=== PATIENT | female | born 1960 | race Caucasian/White ===

== ENCOUNTER 2017-09-05 11:11 | Emergency (ER) | payer MEDICARE, MEDICAID ==
--- NOTE | 2017-09-05 12:10 | RAD ---
TWO VIEWS OF THE LEFT RIBS: History: Injury. Comparison: None. FINDINGS: No displaced fracture or malalignment. Mild degenerative change of the acromioclavicular joint. IMPRESSION: No displaced rib fracture. POS: [facility]
== END 2017-09-05 12:56 | disposition home or self-care (01) ==
LOC: ERS 11:11
DX: R07.81 Pleurodynia (principal); F41.9 Anxiety disorder, unspecified; F32.9 Major depressive disorder, single episode, unspecified; F43.10 Post-traumatic stress disorder, unspecified; W19.XXXA Unspecified fall, initial encounter
CPT/HCPCS: 94799

== ENCOUNTER 2017-10-01 14:10 | Emergency (ER) | payer MEDICARE, MEDICAID ==
[2017-10-01 14:46] LABS: #Basophils 0.1 thou/uL (0.0-0.2); #Eosinphils 0.1 thou/uL (0.0-0.7); #Monocytes 0.9 thou/uL (0.11-0.59); #Neutrophils 9.6 thou/uL (1.40-6.50); %Basophils 0.8 % (0.0-1.0); %Eosinophils 0.8 % (0.0-10.0); %Lymphocytes 15.7 % (21.0-51.0); %Monocytes 6.8 % (0.0-10.0); %Neutrophils 75.9 % (42.0-75.0); Hemoglobin 16.9 g/dL (12.0-16.0); Mean Corpuscular HGB CONC 34.2 g/dL (32.0-36.0); Mean Corpuscular Hemoglobin 33.4 pg (27.0-31.0); Mean Corpuscular Volume 97.6 fl (81.0-99.0); Mean Platelet Volume 7.3 fL (7.4-10.4); Platelet Count 318 thou/uL (130-400); RBC Distribution Width 12.2 % (11.5-14.5); Red Blood Cell (RBC) Count 5.07 mill/uL (4.20-5.40); White Blood Cell (WBC) Count 12.6 thou/uL (4.8-10.8)
--- NOTE | 2017-10-01 14:51 | CT ---
CT HEAD NONCONTRAST DATE: 10/01/17 HISTORY: Altered mental status. Left facial numbness. FINDINGS: No comparison. There is no evidence of acute intracranial hemorrhage or infarct. The ventricles appear normal in siz e, shape, and position. There is no mass effect or shift of midline structures. Visualized paranasal sinuses remain well aerated. IMPRESSION: No acute intracranial abnormalities are demonstrated on noncontrast CT head. POS: [facility]
[2017-10-01] MEDS ORDERED: Lorazepam 2 MG/ML VIAL ONE (14:53)
[2017-10-01 15:08] LABS: ALT (SGPT) 18 U/L (8-55); AST (SGOT) 25 U/L (5-34); Albumin 4.3 g/dL (3.5-5.0); Alkaline Phosphatase 87 U/L (40-150); Anion Gap 16 mmol/L (10-20); BUN (Urea Nitrogen) 11 mg/dL (9.8-20.1); Bilirubin, Total 0.6 mg/dL (0.2-1.2); Calc. Creatinine Clearance 0 mL/min (70-130); Calcium 9.6 mg/dL (7.8-10.44); Carbon Dioxide 20 mmol/L (22-29); Chloride 104 mmol/L (98-107); Estimated GFR-MDRD 77; Globulin 3.4 g/dL (2.4-3.5); Glucose 105 mg/dL (70-105); Potassium 4.2 mmol/L (3.5-5.1); Protein, Total 7.7 g/dL (6.0-8.3); Sodium 136 mmol/L (136-145)
[2017-10-01 15:12] LABS: CKMB 0.9 ng/mL (0-6.6); Troponin I 0.019 ng/mL (< 0.028)
[2017-10-01 15:22] LABS: Acetaminophen Less than 6.0 mcg/mL (10.0-30.0); Alcohol Less than 10 mg/dL (Less than 10); CK (CPK) 33 U/L (29-168); Salicylate Less than 8.0 mg/dL (15.0-30.0)
[2017-10-01 16:06] LABS: Bilirubin Moderate (Negative); Blood, Urine Negative (Negative); Clarity CLOUDY (Clear); Glucose, Urine (Dipstick) Negative (Negative); Leukocyte Small (Negative); Nitrite Negative (Negative); Protein, Urine (Dipstick) 30 mg/dL (Neg-Trace); Specific Gravity, Urine 1.028 (1.002-1.036)
[2017-10-01 16:10] LABS: Bacteria/HPF None Seen HPF (None Seen)
[2017-10-01 16:11] LABS: Pathc Cast-AUWi Flag 2.98 (0-2.49)
[2017-10-01 16:16] LABS: Amphetamine Not Detected (NotDetected); Barbiturates Screen Not Detected (NotDetected); Benzodiazepine Screen Not Detected (NotDetected); Cocaine Metabolite Screen Not Detected (NotDetected); Medtox Control Line Valid? VALID (VALID); Medtox Reader # READER 1; Methadone Not Detected (NotDetected); Methamphetamine Not Detected (NotDetected); Opiate Screen Not Detected (NotDetected); Oxycodone Screen Not Detected (NotDetected); Phencyclidine (PCP) Not Detected (NotDetected); THC/Cannabinoid Screen Detected (NotDetected); Tricyclic Screen Not Detected (NotDetected)
[2017-10-01 16:27] LABS: Hyaline Casts/LPF 7-10 HYALINE CAST LPF (0-3 Hyaline); Other Casts/LPF 0-3 COARSE GRAN LPF (0-3 Hyaline); RBC/HPF 0-3 HPF (0-3); Renal Epithelial 0-3 HPF (0-3); Transitional Epithelial 0-3 HPF (0-3)
--- NOTE | 2017-10-27 19:55 | EKG ---
Test Reason : FACIAL NUMBNESS Blood Pressure : / mmHG Vent. Rate : 092 BPM Atrial Rate : 092 BPM P-R Int : 130 ms QRS Dur : 076 ms QT Int : 362 ms P-R-T Axes : 067 052 051 degrees QTc Int : 447 ms Normal sinus rhythm Possible Left atrial enlargement Borderline ECG Confirmed by JOHN DUFFY ([id number]), international editorial producer BALAJI ALEJANDRO ([id number]) on 10/27/2017 7:54:46 PM Referred By: Confirmed By:JOHN DUFFY
== END 2017-10-02 00:16 ==
LOC: ERS 14:10
DX: R45.851 Suicidal ideations (principal); F41.9 Anxiety disorder, unspecified; F32.9 Major depressive disorder, single episode, unspecified; Z79.899 Other long term (current) drug therapy
CPT/HCPCS: 70450; 80053; 80306; 80307; 81003; 81015; 82553; 84443; 84484; 85025; 93005; 96374; J2060

== ENCOUNTER 2017-10-26 09:58 | Emergency (ER) | payer MEDICARE, MEDICAID ==
[2017-10-26 10:53] LABS: #Basophils 0.1 thou/uL (0.0-0.2); #Eosinphils 0.2 thou/uL (0.0-0.7); #Lymphocytes 2.5 thou/uL (1.20-3.40); #Neutrophils 10.1 thou/uL (1.40-6.50); %Basophils 0.4 % (0.0-1.0); %Eosinophils 1.4 % (0.0-10.0); %Monocytes 7.5 % (0.0-10.0); %Neutrophils 72.6 % (42.0-75.0); Hemoglobin 16.7 g/dL (12.0-16.0); Mean Corpuscular HGB CONC 33.5 g/dL (32.0-36.0); Mean Corpuscular Hemoglobin 32.2 pg (27.0-31.0); Mean Corpuscular Volume 96.1 fl (81.0-99.0); Mean Platelet Volume 6.9 fL (7.4-10.4); Platelet Count 300 thou/uL (130-400); Red Blood Cell (RBC) Count 5.19 mill/uL (4.20-5.40); White Blood Cell (WBC) Count 13.8 thou/uL (4.8-10.8)
[2017-10-26 11:05] LABS: Bilirubin Negative (Negative); Blood, Urine Negative (Negative); Clarity CLEAR (Clear); Glucose, Urine (Dipstick) Negative (Negative); Leukocyte Negative (Negative); Nitrite Negative (Negative); Protein, Urine (Dipstick) Negative (Neg-Trace); Specific Gravity, Urine 1.008 (1.002-1.036); Urobilinogen 0.2 mg/dL (0.2-1.0)
[2017-10-26 11:18] LABS: ALT (SGPT) 12 U/L (8-55); AST (SGOT) 16 U/L (5-34); Albumin 4.1 g/dL (3.5-5.0); Alkaline Phosphatase 90 U/L (40-150); Anion Gap 15 mmol/L (10-20); BUN (Urea Nitrogen) 9 mg/dL (9.8-20.1); Bilirubin, Total 0.7 mg/dL (0.2-1.2); Calc. Creatinine Clearance 0 mL/min (70-130); Calcium 9.6 mg/dL (7.8-10.44); Carbon Dioxide 21 mmol/L (22-29); Chloride 106 mmol/L (98-107); Estimated GFR-MDRD Greater than 90; Globulin 3.1 g/dL (2.4-3.5); Glucose 92 mg/dL (70-105); Potassium 4.5 mmol/L (3.5-5.1); Protein, Total 7.2 g/dL (6.0-8.3); Sodium 137 mmol/L (136-145)
[2017-10-26] MEDS ORDERED: Ondansetron HCl/PF 4 MG/2 ML Vial ONE (11:28)
[2017-10-26] MEDS ORDERED: Fentanyl 100 MCG/2 ML VIAL ONE (11:28)
--- NOTE | 2017-10-26 14:51 | CT ---
CT ABDOMEN AND PELVIS WITH CONTRAST: HISTORY: Abdominal pain. Left lower quadrant pain. COMPARISON: None. FINDINGS: Lung bases are clear. No pericardial effusion. There is abnormal inflammatory stranding around the sigmoid colon with extensive diverticula. No sandro dence of a microperforation. No free air within the peritoneum. The aortoiliac contour is normal. There are bilateral adrenal masses which are round and both well d efined. The liver is unremarkable. Prior cholecystectomy. No hydronephrosis. There is acetabular protrusio on the right hip. Moderate degenerative to the left hip. Moderate disk arthrosis of the lumbar spine. No acute compression fracture. IMPRESSION: 1. Uncomplicated sigmoid diverticulitis without microperforation or drainable fluid collection. 2. Bilateral round adrenal masses. These are indeterminate, although are most likely suggestive of bilateral adrenal adenomas given their homogeneous round appearance. A followup adrenal protocol CT washout is recommended. POS: [facility]
== END 2017-10-26 17:12 | disposition home or self-care (01) ==
LOC: ERS 09:58
DX: K57.32 Diverticulitis of large intestine without perforation or abscess without bleeding (principal); F41.9 Anxiety disorder, unspecified; F32.9 Major depressive disorder, single episode, unspecified; F43.10 Post-traumatic stress disorder, unspecified
CPT/HCPCS: 36415; 74177; 80053; 81003; 82274; 83690; 85025; 96361; 96374; 96375; J2405; J3010

== ENCOUNTER 2018-08-06 15:31 | Emergency (ER) | payer MEDICARE, MEDICAID ==
[2018-08-06] MEDS ORDERED: Acetaminophen 325 MG TAB ONE (16:16)
--- NOTE | 2018-08-06 17:07 | RAD ---
STANDARD AP PELVIS: HISTORY: Fall. Trauma. Pain. COMPARISON: None. FINDINGS: There is axial narrowing of the right hip joint and left hip joint, much worse on the right. There i s mild degenerative disease of both SI joints. Both obturator rings are without displaced fracture. No dislocation. IMPRESSION: 1. Axial narrowing of both hip joints, worse on the right, which can be seen with inflammatory arthr opathy. 2. No acute fracture. POS: [facility]
--- NOTE | 2018-08-06 17:10 | RAD ---
RIGHT HIP TWO VIEWS: HISTORY: Fall. Pain. COMPARISON: None. FINDINGS: There is axial narrowing of the right hip with acetabular over-coverage of the right femoral head. T here are ring osteophytes at the right femoral head/neck junction. There are some phleboliths in the pelvis. IMPRESSION: 1. Axial narrowing of the right hip with secondary degenerative disease, which can be seen with infl ammatory arthropathy. 2. No acute fracture. POS: [facility]
--- NOTE | 2018-08-06 17:12 | RAD ---
XR SACRUM AND SACRUM TWO VIEW: 08/06/18 HISTORY: Pain. COMPARISON: None. FINDINGS: The sacrum is intact. No acute displaced fracture. Coccyx is intact. IMPRESSION: No acute displaced fracture of the sacrum. POS: [facility]
--- NOTE | 2018-08-06 17:13 | RAD ---
LUMBAR SPINE THREE VIEWS: HISTORY: Fall. Pain. COMPARISON: None. FINDINGS: There is chronic appearing height loss at the T12 superior endplate, with a bridging anterior osteoph yte at T11-T12. Advanced narrowing of the L5-S1 disk space. There is narrowing of the intraspinous space between L3 and L5, with subcortical erosions and early s clerosis. No acute displaced fracture or malalignment. Mild vascular calcifications. Right upper quadrant tiffany gical clips. IMPRESSION: Chronic changes. No acute abnormality. POS: [facility]
== END 2018-08-06 16:55 | disposition home or self-care (01) ==
LOC: ERS 15:31
DX: S70.01XA Contusion of right hip, initial encounter (principal); F17.210 Nicotine dependence, cigarettes, uncomplicated; W18.30XA Fall on same level, unspecified, initial encounter
CPT/HCPCS: 72100; 72170; 72220; 99406

== ENCOUNTER 2018-08-29 10:04 | Emergency (ER) | payer MEDICARE, MEDICAID ==
[2018-08-29 10:36] LABS: #Basophils 0.1 thou/uL (0.0-0.2); #Eosinphils 0.1 thou/uL (0.0-0.7); #Lymphocytes 1.4 thou/uL (1.20-3.40); #Monocytes 0.5 thou/uL (0.11-0.59); #Neutrophils 4.5 thou/uL (1.40-6.50); %Basophils 1.1 % (0.0-1.0); %Eosinophils 2.2 % (0.0-10.0); %Monocytes 7.6 % (0.0-10.0); %Neutrophils 68.1 % (42.0-75.0); Hemoglobin 16.3 g/dL (12.0-16.0); Mean Corpuscular HGB CONC 34.9 g/dL (32.0-36.0); Mean Corpuscular Hemoglobin 32.6 pg (27.0-31.0); Mean Corpuscular Volume 93.2 fL (78.0-98.0); Mean Platelet Volume 7.2 fL (7.4-10.4); Platelet Count 335 thou/uL (130-400); RBC Distribution Width 11.4 % (11.5-14.5); White Blood Cell (WBC) Count 6.6 thou/uL (4.8-10.8)
--- NOTE | 2018-08-29 10:59 | RAD ---
SINGLE VIEW CHEST: Date: 08/29/18 COMPARISON: None. HISTORY: Syncope. FINDINGS: Single view of the chest shows a normal sized cardiomediastinal silhouette. There is no evidence of c onsolidation, mass, or pleural effusion. Degenerative changes are seen in the spine. IMPRESSION: No evidence of acute cardiopulmonary disease. POS: [facility]
[2018-08-29 11:00] LABS: ALT (SGPT) 17 U/L (8-55); AST (SGOT) 25 U/L (5-34); Albumin 4.1 g/dL (3.5-5.0); Alkaline Phosphatase 78 U/L (40-150); Anion Gap 14 mmol/L (10-20); BUN (Urea Nitrogen) 8 mg/dL (9.8-20.1); Bilirubin, Total 0.4 mg/dL (0.2-1.2); CK (CPK) 246 U/L (29-168); Calc. Creatinine Clearance 0 mL/min (70-130); Carbon Dioxide 23 mmol/L (22-29); Chloride 100 mmol/L (98-107); Estimated GFR-MDRD Greater than 90; Globulin 2.7 g/dL (2.4-3.5); Glucose 116 mg/dL (70-105); Potassium 4.4 mmol/L (3.5-5.1); Protein, Total 6.8 g/dL (6.0-8.3); Sodium 133 mmol/L (136-145)
--- NOTE | 2018-08-29 11:00 | RAD ---
LEFT HAND 3 VIEWS: Date: 08/29/18 HISTORY: Fall with injury to left hand. FINDINGS: Mild narrowing of the radiocarpal joint. Very mild DJD at the first carpometacarpal. Metacarpals and phalanges appear intact. No evidence of acute fracture. IMPRESSION: Mid degenerative changes at the carpals as described. No fracture or acute abnormality. MCP and IP gary ints unremarkable. POS: [facility]
[2018-08-29] MEDS ORDERED: Ketorolac Tromethamine 30 MG/ML VIAL ONE (11:31)
--- NOTE | 2018-08-29 11:33 | RAD ---
TWO VIEWS RIGHT HUMERUS: Comparison: None. History: Syncope while standing with right arm pain. FINDINGS: Two views of the right humerus shows no evidence of acute fracture or dislocation. No soft tissue swe lling is seen. No degenerative changes are present. IMPRESSION: No evidence of acute osseous abnormality. POS: [facility]
--- NOTE | 2018-08-29 11:34 | RAD ---
THREE VIEWS RIGHT SHOULDER: History: Syncope with fall and right shoulder pain. FINDINGS: Three views of the right shoulder shows no evidence of acute fracture or dislocation. Mild degenerati ve changes seen in the acromioclavicular joint. The visualized right thorax is unremarkable. IMPRESSION: Mild right shoulder degenerative change without acute osseous abnormality. POS: [facility]
--- NOTE | 2018-08-30 13:51 | EKG ---
Test Reason : Blood Pressure : / mmHG Vent. Rate : 078 BPM Atrial Rate : 078 BPM P-R Int : 156 ms QRS Dur : 072 ms QT Int : 376 ms P-R-T Axes : 061 064 071 degrees QTc Int : 428 ms Sinus rhythm with Premature supraventricular complexes Possible Anterior infarct , age undetermined Abnormal ECG Confirmed by FRANCISAC MC D.O. ([id number]), research editor BALAJI ALEJANDRO ([id number]) on 08/30/2018 1:51:19 PM Referred By: Confirmed By:FRANCISCA MC D.O.
== END 2018-08-29 13:57 | disposition home or self-care (01) ==
LOC: ERS 10:04
DX: S61.412A Laceration without foreign body of left hand, initial encounter (principal); S40.011A Contusion of right shoulder, initial encounter; R55 Syncope and collapse; M19.90 Unspecified osteoarthritis, unspecified site; F41.9 Anxiety disorder, unspecified; F31.9 Bipolar disorder, unspecified; F43.10 Post-traumatic stress disorder, unspecified; F17.210 Nicotine dependence, cigarettes, uncomplicated; Z79.899 Other long term (current) drug therapy; W01.0XXA Fall on same level from slipping, tripping and stumbling without subsequent striking against object, initial encounter
CPT/HCPCS: 36415; 71045; 80053; 82550; 84484; 85025; 93005; 96361; 96374; J1885

== ENCOUNTER 2018-09-14 12:08 | Observation (INO) | payer MEDICARE, MEDICAID ==
[2018-09-14] MEDS ORDERED: Lorazepam 2 MG/ML VIAL ONE (12:20)
[2018-09-14 13:32] LABS: #Basophils 0.1 thou/uL (0.0-0.2); #Lymphocytes 1.7 thou/uL (1.20-3.40); #Monocytes 0.8 thou/uL (0.11-0.59); #Neutrophils 8.8 thou/uL (1.40-6.50); %Basophils 0.5 % (0.0-1.0); %Eosinophils 0.4 % (0.0-10.0); %Lymphocytes 14.5 % (21.0-51.0); %Monocytes 6.9 % (0.0-10.0); %Neutrophils 77.6 % (42.0-75.0); Hemoglobin 14.7 g/dL (12.0-16.0); Mean Corpuscular HGB CONC 34.7 g/dL (32.0-36.0); Mean Corpuscular Hemoglobin 33.5 pg (27.0-31.0); Mean Corpuscular Volume 96.8 fL (78.0-98.0); Mean Platelet Volume 6.8 fL (7.4-10.4); Platelet Count 310 thou/uL (130-400); RBC Distribution Width 11.6 % (11.5-14.5); Red Blood Cell (RBC) Count 4.39 mill/uL (4.20-5.40); White Blood Cell (WBC) Count 11.3 thou/uL (4.8-10.8)
[2018-09-14 13:47] LABS: Acetaminophen Less than 6.0 mcg/mL (10.0-30.0); Alcohol Less than 10 mg/dL (Less than 10); Salicylate Less than 8.0 mg/dL (15.0-30.0)
[2018-09-14 13:50] LABS: ALT (SGPT) 12 U/L (8-55); AST (SGOT) 14 U/L (5-34); Alkaline Phosphatase 72 U/L (40-150); Anion Gap 13 mmol/L (10-20); BUN (Urea Nitrogen) 8 mg/dL (9.8-20.1); Bilirubin, Total 0.3 mg/dL (0.2-1.2); Calc. Creatinine Clearance 0 mL/min (70-130); Calcium 8.9 mg/dL (7.8-10.44); Carbon Dioxide 22 mmol/L (22-29); Chloride 98 mmol/L (98-107); Estimated GFR-MDRD 90; Globulin 2.6 g/dL (2.4-3.5); Glucose 98 mg/dL (70-105); Potassium 3.9 mmol/L (3.5-5.1); Protein, Total 6.6 g/dL (6.0-8.3); Sodium 129 mmol/L (136-145)
[2018-09-14] MEDS ORDERED: Ibuprofen 800 MG TAB ONE (14:11)
[2018-09-14] MEDS ORDERED: Nitroglycerin 0.4 MG TAB (25 Tab Bottle) PO PRN (14:56)
[2018-09-14] MEDS ORDERED: Senokot S 8.6-50 MG TAB PO PRN (14:56)
[2018-09-14 14:59] LABS: Bilirubin Small (Negative); Blood, Urine Negative (Negative); Clarity CLEAR (Clear); Glucose, Urine (Dipstick) Negative (Negative); Leukocyte Negative (Negative); Nitrite Negative (Negative); Protein, Urine (Dipstick) Negative (Neg-Trace); Specific Gravity, Urine 1.017 (1.002-1.036); pH, Urine 6.5 (5.0-9.0)
[2018-09-14] MEDS ORDERED: Aspirin Chewable 81 MG TAB ONE (15:13)
--- NOTE | 2018-09-14 15:31 | HP ---
PRIMARY CARE PROVIDER: None. CHIEF COMPLAINT: Dizziness. HISTORY OF PRESENT ILLNESS: Ms. Olivera is a pleasant 58-year-old lady, who was seen at [facility] on September 14, 2018. She presents with several complaints. She reports that the complaints have been going on for the last 2 or 3 days. She is a poor historian. Her son who is with her reminds her that she had these symptoms when she presented to the emergency room on August 29, 2018, more than 2 weeks ago. She reportedly has on and off dizziness, worse with standing. She is unable to recall if it is worse with any particular position of her head. She also reports mild left-sided tinnitus. She denies any deafness. She denies any nausea or vomiting. She also reports on and off retrosternal chest pain, but is unable to characterize it further. She denies any abdominal pain. REVIEW OF SYSTEMS: All other systems reviewed and found to be negative. PAST MEDICAL HISTORY: Osteoarthritis. PAST SURGICAL HISTORY: Cholecystectomy, hernia repair, and tubal ligation. PSYCHIATRIC HISTORY: Anxiety, depression, PTSD, and bipolar disorder. SOCIAL HISTORY: The patient smokes one and half packs of cigarettes a day. She drinks alcohol occasionally. She denies any recreational drug use. FAMILY HISTORY: No family history of coronary artery disease. ALLERGIES: NO KNOWN DRUG ALLERGIES. CURRENT MEDICATIONS: Paroxetine 10 mg daily, carbamazepine 200 mg two times a day, trazodone 100 mg daily, risperidone 0.25 mg 2 times a day, and buspirone 10 mg two times a day. PHYSICAL EXAMINATION: GENERAL: On examination, Ms. Olivera is awake and alert, not in acute distress. VITAL SIGNS: Blood pressure 154/77, pulse 69, respiratory rate 16, and oxygen saturation 97% on room air. She is afebrile. EYES: No scleral icterus. No conjunctival pallor. ENT: Moist mucosal membranes. No oropharyngeal erythema or exudates. External ear exam is unremarkable. NECK: Supple, nontender. Trachea is midline. RESPIRATORY: Accessory muscles of breathing are not active. Chest wall movements are symmetric bilaterally. Lungs are clear to auscultation without wheeze, rhonchi, or crepitations. CARDIOVASCULAR: S1 and S2 are heard, regular. Peripheral pulses palpable. No carotid bruit. No pericardial rub. ABDOMEN: Soft, nontender. Bowel sounds heard. No hepatomegaly, no splenomegaly. NEUROLOGIC: Cranial nerves 2 through 12 are intact. Power is 4/5 in the right upper extremity, 5/5 in the other three extremities. No other focal motor or sensory deficits. Deep tendon reflexes 2+, plantars downgoing bilaterally. MUSCULOSKELETAL: Power in the 4 extremities as described above. SKIN: No rashes or subcutaneous nodules. LYMPHATIC: No cervical lymphadenopathy. PSYCHIATRIC: Normal mood, normal affect. The patient is oriented to person, place, and time. LABORATORY STUDIES: Ms. Olivera's labs and investigations were reviewed. I reviewed her electrocardiogram, which shows normal sinus rhythm, no ST changes to suggest an acute coronary syndrome. I also reviewed her chest x-ray, which does not show any pulmonary infiltrates. She also had a noncontrast CT scan of the brain, report is pending. She has leukocytosis with 11,300 white cells, of which 77% are neutrophils. Hemoglobin and platelet count are normal. She has decreased sodium of 129, otherwise unremarkable comprehensive metabolic profile, normal TSH and normal troponin-I. Plasma alcohol level is less than 10. ASSESSMENT AND PLAN: Ms. Olivera is a pleasant 58-year-old lady, who was seen at [facility] on September 14, 2018. Her problem list includes: 1. Chest pain: Ms. Olivera is presenting with chest pain. Given her significant risk factors, we will follow troponins, monitor on telemetry and rule out acute coronary syndrome. We will order a stress test. 2. Dizziness: Etiology is unclear. We will start her on a trial of meclizine for a benign positional vertigo. We will also order MRI of the brain, carotid Dopplers and 2D echocardiogram as part of stroke workup, since she also has right upper extremity weakness. She reportedly fell on that extremity when she had a fall about 2-1/2 weeks ago. It is possible that the weakness is secondary to the pain in the upper extremity. 3. Tobacco abuse: The patient has been counseled regarding tobacco cessation. We will start her on nicotine replacement therapy. 4. Hyponatremia: We will provide normal saline and recheck sodium level. 5. Depression: Moderate, stable. We will resume home medications. Many thanks for allowing me to participate in your patient's care. Please feel free to contact me with any questions or concerns. LEVEL OF RISK: High. LEVEL OF COMPLEXITY: High. Job ID: [id number]
--- NOTE | 2018-09-14 15:40 | RAD ---
RADIOGRAPH CHEST 1 VIEW: 09/14/18 HISTORY: 58-year-old female with chest pain. FINDINGS: There are no air space densities, pulmonary edema, pneumothorax, or cardiomegaly. The lateral costop hrenic angles are sharp. IMPRESSION: No acute cardiopulmonary findings. michelle [] POS: [facility]
--- NOTE | 2018-09-14 15:51 | CT ---
CT BRAIN NONCONTRAST: DATE: 09/14/2018. TIME: 1:26 p.m. HISTORY: A 58-year-old female with altered mental status and nausea. FINDINGS: There is no midline shift or any other mass effect. There is no evidence of acute intracranial hemor rhage, large cortical infarct, obstructive hydrocephalus, or extraaxial fluid collection. The calvar ium is intact. There is a subcentimeter focal hypodensity in the left jung radiata. There is no i nterval change overall since 10/01/2017. IMPRESSION: 1. No acute intracranial findings. 2. Tiny old lacunar infarction in the left deep cerebral white matter. michelle Garza POS: [facility]
[2018-09-14 17:46] VITALS: BMI 25.3
[2018-09-14] MEDS: Nicotine 21 MG PATCH TD SCH (17:58)
[2018-09-14] MEDS: Sodium Chloride 0.9% 1,000 ML IV SCH (18:02)
[2018-09-14] MEDS: Acetaminophen 325 MG TAB PO PRN ×2 (18:20→23:58)
[2018-09-14 18:34] LABS: Troponin I 0.016 ng/mL (< 0.028)
[2018-09-14] MEDS: Atorvastatin Calcium 20 MG TAB PO SCH (21:36)
[2018-09-15] MEDS ORDERED: Ibuprofen 200 MG TAB PO SCH (00:15)
[2018-09-15 06:25] LABS: #Basophils 0.1 thou/uL (0.0-0.2); #Eosinphils 0.2 thou/uL (0.0-0.7); #Lymphocytes 1.9 thou/uL (1.20-3.40); #Monocytes 1.1 thou/uL (0.11-0.59); %Basophils 0.6 % (0.0-1.0); %Eosinophils 2.2 % (0.0-10.0); %Lymphocytes 18.7 % (21.0-51.0); %Monocytes 10.2 % (0.0-10.0); %Neutrophils 68.3 % (42.0-75.0); Hemoglobin 13.6 g/dL (12.0-16.0); Mean Corpuscular HGB CONC 34.4 g/dL (32.0-36.0); Mean Corpuscular Hemoglobin 33.6 pg (27.0-31.0); Mean Corpuscular Volume 97.6 fL (78.0-98.0); Platelet Count 269 thou/uL (130-400); RBC Distribution Width 11.7 % (11.5-14.5); Red Blood Cell (RBC) Count 4.05 mill/uL (4.20-5.40); White Blood Cell (WBC) Count 10.2 thou/uL (4.8-10.8)
[2018-09-15 06:44] LABS: Anion Gap 14 mmol/L (10-20); BUN (Urea Nitrogen) 9 mg/dL (9.8-20.1); Calc. Creatinine Clearance 103 mL/min (70-130); Calcium 8.5 mg/dL (7.8-10.44); Carbon Dioxide 23 mmol/L (22-29); Cardiac Risk 2.6 (Less than 4.5); Chloride 105 mmol/L (98-107); Cholesterol 137 mg/dl (< 200 Desired); Estimated GFR-MDRD Greater than 90; Glucose 99 mg/dL (70-105); HDL Cholesterol 53 mg/dL (>60 Neg Risk); LDL Cholesterol, Calculated 75 mg/dL; Potassium 4.1 mmol/L (3.5-5.1); Sodium 138 mmol/L (136-145); Triglycerides 44 mg/dL (Less than 150)
[2018-09-15] MEDS: Sodium Chloride 0.9% 1,000 ML IV SCH (06:52)
--- NOTE | 2018-09-15 08:08 | ULT ---
BILATERAL CAROTID DUPLEX ULTRASOUND: HISTORY: Stroke. TECHNIQUE: Mejia scale ultrasound with color flow and spectral Doppler imaging of the extracranial carotid artery systems was performed bilaterally. FINDINGS: There is plaque formation on either side. The peak systolic velocity in the right ICA measures 72 cm/s with an end-diastolic velocity of 19 cm/ s and a systolic ratio of 0.72. The peak systolic velocity in the left ICA measures 100 cm/s with an end-diastolic velocity of 29 cm/ s and a systolic ratio of 0.99. Flow in both vertebral arteries remains antegrade. IMPRESSION: No evidence of hemodynamically significant stenosis. POS: [facility]
[2018-09-15] MEDS: Enoxaparin Sodium 40 MG/0.4 ML SYRINGE SC SCH (09:09)
[2018-09-15] MEDS: Aspirin 325 mg Enteric Coated Tablet PO SCH (09:09)
[2018-09-15] MEDS ORDERED: ADENOSINE 60 MG/20 ML VIAL ONE (09:27)
[2018-09-15] MEDS ORDERED: ALPRAZolam 0.25 MG TAB PO SCH ×2 (10:30→13:00)
[2018-09-15] MEDS: Ibuprofen 200 MG TAB PO PRN ×2 (10:59→20:28)
--- NOTE | 2018-09-15 11:07 | CON ---
DATE OF CONSULTATION: 09/15/2018 TYPE OF CONSULTATION: Neurology. CONSULTING PHYSICIAN: Hospitalist Service. IMPRESSION: Syncope, possible cardiac origin. PLAN: Cardiac workup. HISTORY OF PRESENT ILLNESS: Ms. Olivera is a 58-year-old white female with a past history of tobacco use and arthritis. She was apparently sitting in her house when she started to develop substernal chest pressure. She had some associated nausea and shortness of breath. She apparently lost consciousness for a brief interval of time. The family reports that she went limp and collapsed onto her side. There was no associated seizure activity. She was out for approximately a minute. When she awoke, she still had some ongoing chest pressure and nausea. EMS was called and she was given an aspirin. She was brought into the hospital for evaluation. She is not having any symptoms today. She denies any past history of similar symptoms. She does not report any lateralized weakness or numbness. She had a carotid ultrasound, which was clear. CT scan of the brain without contrast was normal. Her lab work thus far has been negative. PAST MEDICAL HISTORY: As listed above. ALLERGIES: NONE REPORTED. SOCIAL HISTORY: Positive for tobacco. FAMILY HISTORY: Noncontributory. MEDICATIONS: Medication list was reviewed. . REVIEW OF SYSTEMS: Ten-system review of systems is otherwise negative. PHYSICAL EXAMINATION: GENERAL: She is a well-nourished, middle-aged woman, in no acute distress. VITAL SIGNS: Pulse 58 and respirations 16. She is afebrile. HEENT: Pupils are equal and reactive. Conjunctivae clear. Oropharynx clear. NECK: Supple. No lymphadenopathy. EXTREMITIES: No cyanosis, clubbing, or edema. NEUROLOGIC: She is alert and appropriate. Her speech is fluent and clear. Exam is nonfocal. LABORATORY DATA: EKG showed normal sinus rhythm. SUMMARY: This is a middle-aged woman with syncopal episode associated with chest pain and shortness of breath. I do not see any acute neurologic issues in play at this point. Job ID: [id number]
[2018-09-15] MEDS: Nicotine 21 MG PATCH TD SCH (14:13)
--- NOTE | 2018-09-15 14:24 | NM ---
CARDIAC SPECT: HISTORY: A 58-year-old female with chest pain. TECHNIQUE: A myocardial perfusion scan is performed using the single-isotope 1-day protocol with Technetium 99m sestamibi. 10 mCi were injected intravenously for the rest exam and 32 mCi for the stress study. Pha rmacologic stress with adenosine is monitored and interpreted by Dr. Aviles. FINDINGS: Homogeneous tracer distribution is seen in the myocardial segments on stress and rest images without fixed or reversible defects. GATED SPECT LVEF: 74%. WALL MOTION EXAM: Normal. IMPRESSION: Normal myocardial perfusion scan. POS: [facility]
--- NOTE | 2018-09-15 14:27 | MRI ---
MRI BRAIN NONCONTRAST: HISTORY: A 58-year-old female with acute stroke/TIA symptoms: temporary visual loss, near syncope, nausea, hea dache, and generalized weakness. FINDINGS: The ventricles are normal in size and configuration. There is no restricted diffusion, midline shift or any other mass effect, recent intraaxial hemorrhage, or extraaxial fluid collection. There are a few scattered punctate T2-hyperintensities in the cerebral white matter consistent with mild chronic ischemic white matter changes due to mild microvascular atherosclerosis. The adenoids are enlarged to dimensions of approximately 2.5 x 1.8 x 3 cm. The clivus is intact. IMPRESSION: 1. Mild chronic ischemic white matter changes. 2. Otherwise normal brain. 3. Enlargement of adenoids. jn[] POS: [facility]
--- NOTE | 2018-09-15 16:34 | PDOC.PN ---
- Subjective Encounter Start Date: 09/15/18 Encounter Start Time: 16:00 Pt seen for followup re: chest pain. Feels tired, chest pain is better. - Objective MAR Reviewed: Yes Vital Signs & Weight: Vital Signs (12 hours) Temp Pulse Pulse Pulse Resp BP BP 09/15/18 15:20 97.9 F 61 18 09/15/18 15:10 61 64 132/72 146/71 H 09/15/18 07:23 98.0 F 55 L 20 BP Pulse Ox 09/15/18 15:20 146/71 H 96 09/15/18 15:10 09/15/18 07:23 170/77 H 95 Weight Weight 152 lb 4.8 oz I&O: 09/14/18 09/15/18 09/16/18 06:59 06:59 06:59 Intake Total 1552 Output Total 1100 Balance 452 Result Diagrams: 09/15/18 06:04 09/15/18 06:04 EKG Reviewed by me: Yes (Tele; NSR) Phys Exam - Physical Examination Constitutional: NAD HEENT: moist MMs Neck: supple Respiratory: clear to auscultation bilateral Cardiovascular: RRR Gastrointestinal: soft Neurological: moves all 4 limbs Psychiatric: normal affect Dx/Plan (1) Chest pain Code(s): R07.9 - CHEST PAIN, UNSPECIFIED Status: Acute Comment: Improved, stress test negative. Check d-dimer. (2) Dizziness Code(s): R42 - DIZZINESS AND GIDDINESS Status: Acute Comment: Improved (3) Tobacco abuse Code(s): Z72.0 - TOBACCO USE Status: Chronic Comment: continue nicotine patch - Plan plan discussed w/ family, PT/OT * . Review of Systems - Review of Systems Constitutional: weakness Respiratory: negative: Cough, Shortness of Breath, SOB with Excertion, Pleuritic Pain, Wheezing Cardiovascular: negative: chest pain, palpitations, orthopnea, paroxysmal nocturnal dyspnea, edema, light headedness - Medications/Allergies Allergies/Adverse Reactions: Allergies Allergy/AdvReac Type Severity Reaction Status Date / Time No Known Drug Allergies Allergy Verified 09/14/18 14:55 Medications: Current Medications Acetaminophen (Tylenol) 650 mg PO Q4H PRN PRN Reason: Headache/Fever/Mild Pain (1-3) Last Admin: 09/14/18 23:58 Dose: 650 mg Aspirin (Ecotrin) 325 mg PO DAILY [facility] Last Admin: 09/15/18 09:09 Dose: Not Given Atorvastatin Calcium (Lipitor) 20 mg PO HS [facility] Last Admin: 09/14/18 21:36 Dose: 20 mg Enoxaparin Sodium (Lovenox) 40 mg SC 0900 [facility] Last Admin: 09/15/18 09:09 Dose: Not Given Sodium Chloride (Normal Saline 0.9%) 1,000 mls @ 75 mls/hr IV .[id number] [facility] Last Admin: 09/15/18 06:52 Dose: 1,000 mls Ibuprofen (Motrin) 400 mg PO Q8H PRN PRN Reason: Mild Pain (1-3) Last Admin: 09/15/18 10:59 Dose: 400 mg Nicotine (Nicoderm Patch) 21 mg TD Q24HR [facility] Last Admin: 09/15/18 14:13 Dose: Not Given Nitroglycerin (Nitrostat) 0.4 mg PO Q5MIN PRN PRN Reason: Chest Pain Senna/Docusate Sodium (Senokot S) 2 tab PO BID PRN PRN Reason: Constipation Sodium Chloride (Flush - Normal Saline) 10 ml IVF PRN PRN PRN Reason: Saline Flush
--- NOTE | 2018-09-15 19:59 | PDOC.EVN ---
Event Note - Event Note Event Note: Called by RN for pt's home meds- not written for any of them and is on multiple medications for psychiatric dx. Will restart home meds. Mariaelena also notes that D Dimer is slightly elevated - will defer to day team to see what further workup is indicated. Pt reported as hemodynamically normal, normal oxygen levels on room air and without complaints. No indication for imaging at this time.
[2018-09-15] MEDS: Atorvastatin Calcium 20 MG TAB PO SCH (20:26)
[2018-09-15] MEDS: risperiDONE 0.25 MG TAB PO SCH (20:26)
[2018-09-15] MEDS: busPIRone HCl 10 MG TAB PO SCH (20:26)
[2018-09-15] MEDS ORDERED: traZODone HCl 50 MG TAB PO SCH (21:00)
[2018-09-15] MEDS ORDERED: carBAMazepine 100 mg Chewable Tablet PO SCH (21:00)
[2018-09-16] MEDS: Sodium Chloride 0.9% 1,000 ML IV SCH (03:03)
[2018-09-16] MEDS: risperiDONE 0.25 MG TAB PO SCH (08:17)
[2018-09-16] MEDS: Ibuprofen 200 MG TAB PO PRN (08:17)
[2018-09-16] MEDS: busPIRone HCl 10 MG TAB PO SCH (08:17)
[2018-09-16] MEDS: Enoxaparin Sodium 40 MG/0.4 ML SYRINGE SC SCH (08:18)
[2018-09-16] MEDS: Aspirin 325 mg Enteric Coated Tablet PO SCH (08:18)
[2018-09-16] MEDS ORDERED: PARoxetine 20 MG TAB PO SCH (09:00)
[2018-09-16] MEDS ORDERED: carBAMazepine 200 MG TAB PO SCH (09:00)
[2018-09-16 11:55] VITALS: BP 130/74; TEMP 98.4
[2018-09-16] MEDS ORDERED: Iopamidol 370 76% 100 ML VIAL ONE (12:47)
--- NOTE | 2018-09-16 13:59 | CT ---
CTA OF THE THORAX UTILIZING IV CONTRAST AND 3D REFORMATTED IMAGES AND PE PROTOCOL: COMPARISON: Prior CTA of the abdomen and pelvis dated 10/11/2014. FINDINGS: There is ground-glass opacity seen within the left lower lobe. There is mild scattered paraseptal em physema. No central or segmental pulmonary embolus is grossly evident. There are a few mildly promi nent lymph nodes seen within the mediastinum and one is seen within the right paratracheal region heladio suring 1.2 cm. An additional one is seen is seen within the subcarinal region measuring 1.2 cm. The re is scattered coronary artery and thoracic aorta calcifications. Visualized upper abdomen demonstrates stable bilateral adrenal adenomas. No acute osseous abnormalit y is evident. IMPRESSION: 1. No central or segmental pulmonary embolus demonstrated. 2. Ground-glass opacity in the left lower lobe may reflect an alveolitis of infectious or inflammato ry etiology. 3. Mild emphysema. 4. Nonspecific mildly prominent mediastinal lymph nodes. 5. Stable bilateral adrenal adenomas. POS: [facility]
[2018-09-16] MEDS: Nicotine 21 MG PATCH TD SCH (16:11)
--- NOTE | 2018-09-17 05:44 | DIS ---
DATE OF ADMISSION: 09/14/2018 DATE OF DISCHARGE: 09/16/2018 PRIMARY CARE PROVIDER: None. DISCHARGE DIAGNOSES: 1. Chest pain. 2. Most likely musculoskeletal etiology for chest pain. 3. Dizziness. 4. Hyponatremia. 5. Tobacco abuse. 6. Moderate depression. 7. Pneumonia, suspected. CONDITION OF PATIENT ON THE DAY OF DISCHARGE: Stable. I assessed Ms. Olivera on the day of discharge. She reports chest pain is better. Vital signs are stable. S1 and S2 are heard, regular. Lungs are clear to auscultation bilaterally. DISCHARGE MEDICATIONS: 1. BuSpar 10 mg two times a day. 2. Tegretol 300 mg at bedtime and 200 mg in the morning. 3. Paxil 10 mg daily. 4. Risperidone 0.25 mg 2 times a day. 5. Trazodone 100 mg at bedtime. 6. NicoDerm CQ 21 mg patch daily. 7. Omnicef 300 mg 2 times a day. HOSPITAL COURSE: Ms. Olivera is a pleasant 58-year-old lady, who was admitted to [facility] on September 14, 2018, for chest pain and dizziness. Please refer to my history and physical note dated on September 14, 2018, for further details. She was seen by Neurology Service, Dr. Brush. MRI of the brain showed enlarged adenoids, mild chronic ischemic white matter changes, and otherwise normal brain. She had nuclear stress test, which did not show any evidence of reversible ischemia. Left ventricular ejection fraction was 74%. 2D echocardiogram showed left ventricular ejection fraction of 50% to 55%, grade 1/3 diastolic dysfunction, moderately dilated left atrium, thickened mitral valve leaflets, [id number] mitral regurgitation, mild tricuspid regurgitation, elevated right ventricular systolic pressure estimated at 43 mmHg and small pericardial effusion without tamponade. She had a mildly elevated D-dimer. CT angiogram of the chest did not show any central or segmental pulmonary embolus. She had ground-glass opacity in the left lower lobe, which may reflect an cellulitis of infectious or inflammatory etiology. She has mild emphysema, nonspecific mildly prominent mediastinal lymph nodes and stable bilateral adrenal adenomas. She is being discharged home in a stable condition. She is advised to follow up with her primary care provider in 3 to 5 days. At the time of admission, she had hyponatremia with sodium of 129, it resolved by the following day. Fasting lipid profile done during this hospitalization showed triglycerides 44, cholesterol 137, LDL cholesterol 75, and HDL cholesterol 53. TSH was normal. Many thanks for allowing me to participate in your patient's care. Please feel free to contact me with any questions or concerns. DISCHARGE DESTINATION: Home. Job ID: [id number]
== END 2018-09-16 16:25 | disposition home or self-care (01) ==
LOC: ERS 12:08 → ERHOLD 14:20 → 2SW 15:25
PROVIDERS: ADMIT Internal Medicine; ATTEND Internal Medicine
DX: R07.89 Other chest pain (principal); R42 Dizziness and giddiness; E87.1 Hypo-osmolality and hyponatremia; F17.210 Nicotine dependence, cigarettes, uncomplicated; F31.9 Bipolar disorder, unspecified; J35.2 Hypertrophy of adenoids; I31.3 Pericardial effusion (noninflammatory); I08.1 Rheumatic disorders of both mitral and tricuspid valves; J43.9 Emphysema, unspecified; J45.909 Unspecified asthma, uncomplicated; F41.9 Anxiety disorder, unspecified; F43.10 Post-traumatic stress disorder, unspecified; Z79.899 Other long term (current) drug therapy
CPT/HCPCS: 70450; 70551; 71045; 71275; 78452; 80048; 80061; 80307; 81003; 84484 ×2; 85025; 85379; 93005; 93017; 93306; 93880; 94760; 96361 ×4; 96372; 96374; 97116; 97139 ×4; 99285; A9500; G0378 ×2; 36415; 80053; 84443; J0153; J1650; J2060; Q9967

== ENCOUNTER 2018-12-05 10:33 | Emergency (ER) | payer MEDICARE, MEDICAID ==
[2018-12-05] MEDS ORDERED: Iopamidol 370 76% 50 ML VIAL FS ONE (10:34)
[2018-12-05] MEDS ORDERED: ISOVUE-370 76%-LOCM 1 ML ONE (10:34)
[2018-12-05] MEDS ORDERED: Ondansetron PF 4 MG/2 ML Vial ONE (11:24)
[2018-12-05] MEDS ORDERED: Morphine 4 MG/ML VIAL ONE (11:24)
[2018-12-05 11:28] LABS: #Eosinphils 0.2 thou/uL (0.0-0.7); #Lymphocytes 2.8 thou/uL (1.20-3.40); #Monocytes 0.9 thou/uL (0.11-0.59); #Neutrophils 6.2 thou/uL (1.40-6.50); %Basophils 0.5 % (0.0-1.0); %Eosinophils 1.9 % (0.0-10.0); %Lymphocytes 27.5 % (21.0-51.0); %Monocytes 8.7 % (0.0-10.0); %Neutrophils 61.4 % (42.0-75.0); Mean Corpuscular HGB CONC 34.2 g/dL (32.0-36.0); Mean Corpuscular Volume 96.4 fL (78.0-98.0); Mean Platelet Volume 7.2 fL (7.4-10.4); Platelet Count 357 thou/uL (130-400); RBC Distribution Width 11.8 % (11.5-14.5); Red Blood Cell (RBC) Count 4.55 mill/uL (4.20-5.40)
[2018-12-05 11:32] LABS: Bilirubin Negative (Negative); Blood, Urine Trace (Negative); Clarity CLOUDY (Clear); Glucose, Urine (Dipstick) Negative (Negative); Leukocyte Negative (Negative); Nitrite Negative (Negative); Protein, Urine (Dipstick) Negative (Neg-Trace); Specific Gravity, Urine 1.015 (1.002-1.036); Urobilinogen 0.2 mg/dL (0.2-1.0)
[2018-12-05 11:35] LABS: Hyaline Casts/LPF 0-3 HYALINE CAST LPF (0-3 Hyaline); Pathc Cast-AUWi Flag 0.54 (0-2.49); WBC/HPF 0-3 HPF (0-3); Yeast-AUWi Flag 27.6 (0-25.0)
[2018-12-05 11:47] LABS: ALT (SGPT) 17 U/L (8-55); AST (SGOT) 14 U/L (5-34); Albumin 4.2 g/dL (3.5-5.0); Alkaline Phosphatase 93 U/L (40-150); Anion Gap 14 mmol/L (10-20); BUN (Urea Nitrogen) 12 mg/dL (9.8-20.1); Bilirubin, Total 0.4 mg/dL (0.2-1.2); Calc. Creatinine Clearance 0 mL/min (70-130); Calcium 9.4 mg/dL (7.8-10.44); Carbon Dioxide 22 mmol/L (22-29); Chloride 103 mmol/L (98-107); Estimated GFR-MDRD Greater than 90; Globulin 3.4 g/dL (2.4-3.5); Glucose 97 mg/dL (70-105); Lipase 20 U/L (8-78); Potassium 4.1 mmol/L (3.5-5.1); Protein, Total 7.6 g/dL (6.0-8.3); Sodium 135 mmol/L (136-145)
[2018-12-05 11:50] LABS: Bacteria/HPF Rare-Few HPF (None Seen); Yeast-All Forms None Seen HPF (None Seen)
--- NOTE | 2018-12-05 13:26 | CT ---
CT Abdomen Pelvis W Con HISTORY:Left lower quadrant pain and history of diverticulitis. COMPARISON: 10/26/2017 study. FINDINGS: The lung bases are clear. The liver is borderline in size. The spleen is within normal limi ts. Pancreas is unremarkable. The gallbladder has been removed. Bilateral adrenal masses are again identified. They are stable in size and have the appearance most s uggestive of adenomas. There is no significant periaortic or mesenteric lymphadenopathy. CT of pelvis performed with intravenous contrast enhancement: Sigmoid diverticulosis again identified . I do not appreciate any definite acute changes that would suggest diverticulitis. The appendix is normal. No free fluid. IMPRESSION: 1. Stable appearance to bilateral adrenal masses most likely adenomas. 2. Postcholecystectomy change. 3. Sigmoid diverticulosis without definite inflammatory change.
== END 2018-12-05 14:38 | disposition home or self-care (01) ==
LOC: ERS 10:33
DX: K59.00 Constipation, unspecified (principal); F41.9 Anxiety disorder, unspecified; F31.9 Bipolar disorder, unspecified; F43.10 Post-traumatic stress disorder, unspecified; F17.290 Nicotine dependence, other tobacco product, uncomplicated; Z79.899 Other long term (current) drug therapy
CPT/HCPCS: 74177; 80053; 81003; 81015; 82274; 83690; 85025; 96361; 96374; 96375; J2270; J2405; Q9966; Q9967

== ENCOUNTER 2018-12-10 12:55 | Emergency (ER) | payer MEDICARE, MEDICAID ==
--- NOTE | 2018-12-10 13:46 | RAD ---
Exam:4 views left knee HISTORY: Fall. Pain. COMPARISON: None FINDINGS: Severe tricompartmental degenerative change with exuberant heterotopic bone formation. Mild bony mineralization. Small suprapatellar effusion. No fracture. IMPRESSION: No fracture. Chronic severe degenerative changes as described
[2018-12-10] MEDS ORDERED: HYDROcodone/Acetaminophen 5/325 mg Tablet ONE (15:01)
== END 2018-12-10 15:42 | disposition home or self-care (01) ==
LOC: ERS 12:55
DX: M25.562 Pain in left knee (principal); M19.90 Unspecified osteoarthritis, unspecified site; F31.9 Bipolar disorder, unspecified; F41.9 Anxiety disorder, unspecified; F43.10 Post-traumatic stress disorder, unspecified; F17.210 Nicotine dependence, cigarettes, uncomplicated; W01.0XXA Fall on same level from slipping, tripping and stumbling without subsequent striking against object, initial encounter

== ENCOUNTER 2018-12-27 07:46 | Emergency (ER) | payer MEDICARE, MEDICAID ==
[2018-12-27 08:34] LABS: #Eosinphils 0.1 thou/uL (0.0-0.7); #Lymphocytes 1.8 thou/uL (1.20-3.40); #Monocytes 1.1 thou/uL (0.11-0.59); #Neutrophils 10.2 thou/uL (1.40-6.50); %Basophils 0.3 % (0.0-1.0); %Eosinophils 1.1 % (0.0-10.0); %Lymphocytes 13.5 % (21.0-51.0); %Monocytes 8.4 % (0.0-10.0); %Neutrophils 76.7 % (42.0-75.0); Hemoglobin 13.8 g/dL (12.0-16.0); Mean Corpuscular HGB CONC 34.1 g/dL (32.0-36.0); Mean Corpuscular Hemoglobin 32.6 pg (27.0-31.0); Mean Corpuscular Volume 95.4 fL (78.0-98.0); Mean Platelet Volume 7.1 fL (7.4-10.4); Platelet Count 326 thou/uL (130-400); RBC Distribution Width 11.3 % (11.5-14.5); Red Blood Cell (RBC) Count 4.23 mill/uL (4.20-5.40); White Blood Cell (WBC) Count 13.3 thou/uL (4.8-10.8)
[2018-12-27 08:57] LABS: ALT (SGPT) 7 U/L (8-55); AST (SGOT) 7 U/L (5-34); Albumin 3.8 g/dL (3.5-5.0); Alkaline Phosphatase 80 U/L (40-150); Anion Gap 15 mmol/L (10-20); BUN (Urea Nitrogen) 8 mg/dL (9.8-20.1); Bilirubin, Total 0.6 mg/dL (0.2-1.2); Calc. Creatinine Clearance 0 mL/min (70-130); Calcium 9.2 mg/dL (7.8-10.44); Carbon Dioxide 22 mmol/L (22-29); Chloride 100 mmol/L (98-107); Estimated GFR-MDRD Greater than 90; Globulin 3.2 g/dL (2.4-3.5); Glucose 117 mg/dL (70-105); Lipase 14 U/L (8-78); Potassium 3.6 mmol/L (3.5-5.1); Sodium 133 mmol/L (136-145)
[2018-12-27 09:08] LABS: Bilirubin Small (Negative); Blood, Urine Moderate (Negative); Clarity CLOUDY (Clear); Glucose, Urine (Dipstick) Negative (Negative); Leukocyte Trace (Negative); Nitrite Negative (Negative); Protein, Urine (Dipstick) 30 mg/dL (Neg-Trace); Specific Gravity, Urine 1.028 (1.002-1.036)
[2018-12-27 09:10] LABS: Bacteria/HPF None Seen HPF (None Seen); Pathc Cast-AUWi Flag 1.76 (0-2.49); RBC/HPF 21-50 HPF (0-3); WBC/HPF 0-3 HPF (0-3)
[2018-12-27] MEDS ORDERED: Morphine 4 MG/ML VIAL ONE (09:15)
[2018-12-27] MEDS ORDERED: Ondansetron PF 4 MG/2 ML Vial ONE (09:16)
[2018-12-27 09:33] LABS: Hyaline Casts/LPF 0-3 HYALINE CAST LPF (0-3 Hyaline); Renal Epithelial None Seen HPF (0-3); Transitional Epithelial NONE SEEN HPF (0-3)
--- NOTE | 2018-12-27 10:18 | CT ---
CT Abdomen Pelvis W Con History: [Right lower quadrant pain] Comparison: CT abdomen pelvis December 05, 2018 Findings: Lung bases are clear. Small volume pericardial fluid. Prior cholecystectomy. Bilateral adrenal adenomas. Mild reservoir effect of the extrahepatic biliary system. Spleen is unremarkable as well as the pancr eas. No hydronephrosis. No abnormal renal enhancing mass. Marked thickening of the mid sigmoid colon with inflammation centered in a diverticulum. No abscess f ormation. No evidence for contained perforation. Wall thickening of the bladder is likely reactive. No dilated loops of small bowel. Aortic contour is nonaneurysmal. No retroperitoneal adenopathy. No acute osseous abnormality. Impression: Uncomplicated acute sigmoid diverticulitis. Follow-up after colonoscopy treatment is marli mmended.
[2018-12-27] MEDS ORDERED: ISOVUE-370 76%-LOCM 1 ML ONE (11:51)
== END 2018-12-27 11:04 | disposition home or self-care (01) ==
LOC: ERS 07:46
DX: K57.32 Diverticulitis of large intestine without perforation or abscess without bleeding (principal); F41.9 Anxiety disorder, unspecified; F31.9 Bipolar disorder, unspecified; F17.210 Nicotine dependence, cigarettes, uncomplicated; F43.10 Post-traumatic stress disorder, unspecified; M19.90 Unspecified osteoarthritis, unspecified site; Z79.1 Long term (current) use of non-steroidal anti-inflammatories (NSAID); Z79.899 Other long term (current) drug therapy
CPT/HCPCS: 36415; 74177; 80053; 81003; 81015; 82274; 83605; 83690; 85025; 96374; 96375; J2270; J2405; Q9966

== ENCOUNTER 2019-01-07 13:11 | Emergency (ER) | payer MEDICARE, MEDICAID ==
[2019-01-07] MEDS ORDERED: Lidocaine 1% w/Epinephrine 1:100K 20 ML VIAL ONE (15:23)
[2019-01-07] MEDS ORDERED: Morphine 4 MG/ML VIAL ONE (15:50)
[2019-01-07] MEDS ORDERED: Dexamethasone 10 MG/ML VIAL ONE (16:00)
== END 2019-01-07 16:30 | disposition home or self-care (01) ==
LOC: ERS 13:11
DX: M10.9 Gout, unspecified (principal); M19.90 Unspecified osteoarthritis, unspecified site; F41.9 Anxiety disorder, unspecified; F31.9 Bipolar disorder, unspecified; F43.10 Post-traumatic stress disorder, unspecified; F17.210 Nicotine dependence, cigarettes, uncomplicated; Z79.899 Other long term (current) drug therapy; Z79.1 Long term (current) use of non-steroidal anti-inflammatories (NSAID)
CPT/HCPCS: 20610; 96372; J1100; J2001; J2270

== ENCOUNTER 2019-03-07 11:25 | Emergency (ER) | payer MEDICARE, MEDICAID ==
[2019-03-07] MEDS ORDERED: HYDROcodone/Acetaminophen 5/325 mg Tablet ONE (11:47)
--- NOTE | 2019-03-07 12:03 | RAD ---
EXAM: XR Knee Rt 4 View STANDARD PROVIDED CLINICAL HISTORY: Pain COMPARISON: None FINDINGS: No evidence for fracture or other acute osseous abnormality. Advanced tricompartmental degenerative a rthrosis with conspicuous joint space loss bulky periarticular osteophyte formation. No evidence for significant knee joint capsular distention. IMPRESSION: Severe degenerative change.
== END 2019-03-07 13:05 | disposition home or self-care (01) ==
LOC: ERS 11:25
DX: S83.91XA Sprain of unspecified site of right knee, initial encounter (principal); M19.90 Unspecified osteoarthritis, unspecified site; F31.9 Bipolar disorder, unspecified; F41.9 Anxiety disorder, unspecified; F43.10 Post-traumatic stress disorder, unspecified; F17.210 Nicotine dependence, cigarettes, uncomplicated; W18.30XA Fall on same level, unspecified, initial encounter

== ENCOUNTER 2019-09-02 14:32 | Observation (INO) | payer MEDICARE, MEDICAID ==
[2019-09-02 15:07] LABS: #Basophils 0.1 thou/uL (0.0-0.2); #Eosinphils 0.1 thou/uL (0.0-0.7); #Lymphocytes 2.6 thou/uL (1.20-3.40); #Monocytes 0.8 thou/uL (0.11-0.59); #Neutrophils 6.6 thou/uL (1.40-6.50); %Basophils 0.8 % (0.0-1.0); %Eosinophils 1.3 % (0.0-10.0); %Lymphocytes 25.2 % (21.0-51.0); %Monocytes 8.2 % (0.0-10.0); %Neutrophils 64.5 % (42.0-75.0); Hemoglobin 16.3 g/dL (12.0-16.0); Mean Corpuscular HGB CONC 34.7 g/dL (32.0-36.0); Mean Corpuscular Volume 95.2 fL (78.0-98.0); Mean Platelet Volume 7.7 fL (7.4-10.4); Platelet Count 345 thou/uL (130-400); RBC Distribution Width 12.8 % (11.5-14.5); Red Blood Cell (RBC) Count 4.92 mill/uL (4.20-5.40); White Blood Cell (WBC) Count 10.2 thou/uL (4.8-10.8)
[2019-09-02] MEDS ORDERED: methylPREDNISolone Sod Succ/PF 125 MG/2 ML VIAL ONE (15:09)
[2019-09-02] MEDS ORDERED: Albuterol Sulfate 2.5 mg/0.5 ml Neb ONE (15:22)
[2019-09-02] MEDS ORDERED: Albuterol Sulfate 2.5 mg/3 ml Neb ONE (15:23)
[2019-09-02 15:41] LABS: ALT (SGPT) 12 U/L (8-55); AST (SGOT) 27 U/L (5-34); Alkaline Phosphatase 85 U/L (40-110); Anion Gap 15 mmol/L (10-20); BUN (Urea Nitrogen) 18 mg/dL (9.8-20.1); Bilirubin, Total 0.4 mg/dL (0.2-1.2); Calc. Creatinine Clearance 0 mL/min (70-130); Calcium 9.2 mg/dL (7.8-10.44); Carbon Dioxide 21 mmol/L (22-29); Chloride 105 mmol/L (98-107); Estimated GFR-MDRD 79; Globulin 3.7 g/dL (2.4-3.5); Glucose 99 mg/dL (70-105); Protein, Total 7.7 g/dL (6.0-8.3); Sodium 136 mmol/L (136-145)
[2019-09-02 16:15] LABS: CKMB 0.6 ng/mL (0-6.6)
--- NOTE | 2019-09-02 16:18 | RAD ---
EXAM: Chest PA and lateral: HISTORY: Dyspnea COMPARISON: 09/14/2018 FINDINGS: Heart: Normal cardiac silhouette Aorta: Unremarkable Pulmonary vessels: Normal Costophrenic angles: Costophrenic angles are clear. Lungs: Hyperinflation with chronic changes. No mass or consolidation. Pneumothorax: No pneumothorax Osseous structures: No osseous abnormalities IMPRESSION: No acute cardiopulmonary process.
--- NOTE | 2019-09-02 17:07 | PDOC.FPRHP ---
- History of Present Illness Chief Complaint: chest pressure and SOB History of Present Illness: 59yo CF with a recent diagnosis of COPD who presented to the ED for CP and SOB. Patient reports central chest pressure/ache with radiation down her left arm but comes and goes. Rated 8/10. Relieved with motrin. Has been ongoing for a couple of days. Was just in the hospital in [place] for similar complaints, including same chest pain, and was diagnosed with COPD at that time. Also states had cardiac workup in [place] which she thinks was negative but unsure details. Also endorses a productive cough of clear sputum but did note a single blood clot in sputum earlier today. Says currently cannot walk more than ~10 feet without getting winded but her baseline is not much more. Endorses PND for about 1 month. No fever/chills, N/V, or LE edema. ED Course: Given Duoneb and solumedrol. Indeterminate trop. Admitted to tele obs. - Allergies/Adverse Reactions Allergies Allergy/AdvReac Type Severity Reaction Status Date / Time No Known Drug Allergies Allergy Verified 09/02/19 19:35 - Home Medications Comments: Pt was seen last in clinic 3 months ago. States she is currently not taking any medications daily. - History PMHx: COPD, anxiety, depression, diverticulosis PSHx: niall, tubal ligation, hernia repair FHx: Brother- prostate CA Father- COPD Sister- Colon CA Mom- CAD requiring stents Social: Current smoker, 1ppd since age 14. Has ~3 beers/week. Has smoked marijuana recently for arthritis pain. Lives with family - Review of Systems General: reports: fatigue. denies: fever/chills, night sweats Eyes: denies: eye pain, vision changes ENT: denies: nasal congestion, rhinorrhea Respiratory: reports: cough, shortness of breath. denies: congestion Cardiovascular: reports: chest pain, paroxysmal nocturnal dyspnea. denies: palpitation, edema, orthopnea Gastrointestinal: reports: constipation (chronic). denies: nausea, vomiting, diarrhea, abdominal pain Genitourinary: denies: dysuria, polyuria Skin: denies: rashes Musculoskeletal: reports: arthritis/arthralgias. denies: swelling Neurological: denies: weakness Psychological: reports: anxiety, depression - Vital signs BP: 138/66 HR: 88 RR: 18 Tmax: Pox: 94% on RA Wt: 102 kg - Physical Exam Constitutional: NAD, awake, alert and oriented, well developed HEENT: normocephalic and atraumatic, conjunctiva clear, grossly normal vision ( with glasses), grossly normal hearing, MMM, oropharynx clear Neck: supple, FROM, no LAD Chest: other (tender to palpation, CP reproducible on exam) Heart: RRR, normal S1/S2, no murmurs/rubs/gallops, pulses present (2+ dorsalis pedis and radial) Lungs: no respiratory distress, no rales/rhonchi, other (Decreased breath sounds throughout, mild end-exp wheeze. Mild supraclavicular retractions) Abdomen: soft, non-tender, bowel sounds present, no masses/distention Musculoskeletal: normal structure Neurological: no focal deficit Skin: no rash/lesions, good turgor Heme/Lymphatic: no unusual bruising or bleeding Psychiatric: good judgment and insight, other (Anxious) FMR H&P: Results - Labs Result Diagrams: 09/02/19 14:46 09/02/19 14:46 Lab results: WBC 10.2 thou/uL (4.8-10.8) 09/02/19 14:46 Hgb 16.3 g/dL (12.0-16.0) H 09/02/19 14:46 Hct 46.9 % (36.0-47.0) 09/02/19 14:46 MCV 95.2 fL (78.0-98.0) 09/02/19 14:46 Plt Count 345 thou/uL (130-400) 09/02/19 14:46 Neutrophils % 64.5 % (42.0-75.0) 09/02/19 14:46 Sodium 136 mmol/L (136-145) 09/02/19 14:46 Potassium 5.0 mmol/L (3.5-5.1) 09/02/19 14:46 Chloride 105 mmol/L (98-107) 09/02/19 14:46 Carbon Dioxide 21 mmol/L (22-29) L 09/02/19 14:46 BUN 18 mg/dL (9.8-20.1) 09/02/19 14:46 Creatinine 0.75 mg/dL (0.6-1.1) 09/02/19 14:46 Glucose 99 mg/dL (70-105) 09/02/19 14:46 Calcium 9.2 mg/dL (7.8-10.44) 09/02/19 14:46 Total Bilirubin 0.4 mg/dL (0.2-1.2) 09/02/19 14:46 AST 27 U/L (5-34) 09/02/19 14:46 ALT 12 U/L (8-55) 09/02/19 14:46 Alkaline Phosphatase 85 U/L (40-110) 09/02/19 14:46 CK-MB (CK-2) 0.6 ng/mL (0-6.6) 09/02/19 15:01 B-Natriuretic Peptide 149.2 pg/mL (0-100) H 09/02/19 15:04 Serum Total Protein 7.7 g/dL (6.0-8.3) 09/02/19 14:46 Albumin 4.0 g/dL (3.5-5.0) 09/02/19 14:46 - EKG Interpretation EKG: Normal axis. NSR. No ST or T wave changes. QTc 453. - Radiology Interpretation Chest x-ray Status: image reviewed by me (mild hyperinflation of lungs, no focal consolidation), report reviewed by me (no acute cardiopulm process) FMR H&P: A/P - Problem List (1) COPD exacerbation Current Visit: Yes Status: Acute Code(s): J44.1 - CHRONIC OBSTRUCTIVE PULMONARY DISEASE W (ACUTE) EXACERBATION (2) Anxiety Current Visit: Yes Status: Chronic Code(s): F41.9 - ANXIETY DISORDER, UNSPECIFIED (3) Chest pain Current Visit: Yes Status: Acute Code(s): R07.9 - CHEST PAIN, UNSPECIFIED Qualifiers: Chest pain type: intercostal pain Qualified Code(s): R07.82 - Intercostal pain Comment: Improved, stress test negative. Check d-dimer. (4) Tobacco abuse Current Visit: Yes Status: Chronic Code(s): Z72.0 - TOBACCO USE Comment: continue nicotine patch - Plan 59yo CF with h/o COPD, anxiety, tob abuse presents with atypical CP and COPD exacerbation. #COPD exacerbation - Tachypnea of 29 at presentation, otherwise satting well and afebrile, RR improved with neb tx - WBC 10.2, procal <0.02, flu neg - CXR - no acute CPP - Recent hospitalization [facility] for COPD exacerbation, had cardiac w/u, will obtain records - Duonebs q6h with q4h prn - S/p Solumedrol 125mg in ED, will cont Prednisone 40mg daily x5d - Azithro 500mg x3d - Will monitor resp status #Atypical chest pain, likely costochondritis from chronic cough - reproducible on exam - Similar to previous COPD admit pain per pt - Indeterminate trop at 0.047, will trend - Admit to Tele obs for monitoring - Heart score 2 - Pt states recent cardiac workup at [place], will obtain records - Tylenol prn #Anxiety - chronic, no home meds - Vistaril TID prn #Tob abuse - nicotine patch, encourage cessation PCP: JUAN Flaherty IVF: SL Diet: Regular DVT: Lovenox Dispo: Admit to tele obs for acute COPD exacerbation and indeterminate trop. Will trend trops, cont respiratory therapy and monitoring. Anticipate hospitalization < 48 hours. FMR H&P: Upper Level - Pertinent history 59YOF with a reported h/o anxiety, arthritis, tobacco abuse, & COPD who presented to the ED with a CC of CP and SOB. Regarding her chest pain, patient reports having left-sided chest pressure/aching with radiation down her left arm that comes and goes regardless of what activity she is doing that has been ongoing for the last few days. Rated is as an 8/10 in severity. Reports some relief with motrin. Reports she was just in the hospital in [place] after presenting there with similar complaints, including same chest pain, and was diagnosed with COPD at that time. Also states had cardiac workup in [place] which she thinks was negative. Regarding her SOB, patient endorses increased SOB both at rest & on exertion. Says she currently cannot walk more than ~10 feet without getting winded but her baseline is not much more. Reports an associated productive cough of clear sputum but did note a single blood clot in sputum earlier today. Endorses PND for about 1 month. Denies any associated fever/chills, N/V, nasal congestion/drainage, headache, or LE edema. - Pertinent findings Trop 0.047 BNP 149.2 Hgb 16.3 WBC 10 EKG NSR CXR: NAF REVIEW OF SYSTEMS: Gen: no fever, chills, or sweats Neuro: no headache or weakenss Eyes: no visual changes ENT: no ear pain, no sore throat, no runny nose Resp: +cough & SOB, no wheeze Card: + chest pain & PND; No edema GI: no N/V/D, no abdominal pain, + constipation : no dysuria, no hematuria MSK: no myalgias, + joint pain/stiffness Heme: no easy bruising/bleeding, no blood thinners (but takes ~1g ibuprofen QD) Skin: no rash, no erythema Vitals: BP: 138/66 HR: 88 RR: 18 Tmax: 98.6F Pox: 94% on RA Wt: 102 kg PHYSICAL EXAMINATION: General: NAD, alert and oriented x3 HEENT: PERRLA, EOMI, normal sclera, oropharynx without erythema or exudate Neck: Supple. Full ROM. Chest: Exquisitely TTP in left chest Heart/Cardiovascular System: RRR, Cap refill < 3 seconds, no rub, no murmur Lungs/Respiratory System: Trace end expiratory wheezing heard throughout with distant breath sounds; Mild increased work of breathing. Room air. Abdomen/Gastro-Intestinal System: no abdominal tenderness, normal bowel sounds Extremities: Warm extremities. No cyanosis or edema. Neuro: No gross deficits appreciated. CN 2-12 grossly intact Psychiatry: Awake, Alert and cooperative with exam but very anxious appearing and tearful at end of interview Skin: No lesions, rashes, or ulcers but multiple scattered bruises noted on UEs Musculoskeletal: Full ROM - Plan Date/Time: 09/02/19 1703 ISabrina, have evaluated this patient and agree with findings/plan as outlined by internal communications writer resident. Pertinent changes/additions are listed here. 59YOF with a reported h/o of COPD, anxiety, and tob abuse who presents with atypical CP and a suspected COPD exacerbation. #Acute on chronic COPD exacerbation - Tachypneic with a RR of 29 on presentation to the ED but was maintaining adequate sats on RA & had slight improvement with INH Duoneb. - WBC 10.2, procal <0.02, flu neg - CXR - no acute findings - Will continue CHELO Duonebs Q6H & continue steroids but transition to PO prednisone to start tomorrow AM & continue for 4 days for 5 day course total. - Will also start on Azithromycin & continue for 5 day course. - Will monitor resp status closely overnight #Atypical chest pain - Most likely costochondritis from chronic cough as pain was reproducible on exam w/ significant TTP on exam of left chest. In addition, patient reports being hospitalized at [facility] recently for similar complaints had a cardiac w/u which she believes was negative, will request records. - Initial trop indeterminate at 0.047 & EKG NSR. Will continue to trend trops & monitor on telemetry overnight. - Tylenol prn for pain #Anxiety - chronic, not taking any meds at home but reports she is supposed to be - Hydroxyzine Q6H prn for anxiety and/or insomnia while inpatient - Needs f/u with PCP upon d/c for restarting QD maintenance therapy #Tobacco abuse - Nicotine patch while inpatient - Will encourage cessation #Elevated BNP - BNP mildly elevated at 149.2 & no baseline for comparison. - patient reports PND x1 month but no crackles or edema noted on exam. Likely had an ECHO in [place] so will request these records to assess for CHF. #Polycythemia - Hgb elevated at 16.3. Likely 2/2 heavy smoking history. Will encourage cessation. PCP: JUAN Flaherty IVFs: LUTHER Diet: Regular DVT PPX: Lovenox GI PPX: None CODE STATUS: FULL CODE Dispo: Will admit to tele obs for acute COPD exacerbation and chest pain with indeterminate trop. Anticipated LOS < 48 hours pending clinical course.
[2019-09-02 18:38] LABS: Troponin I Less than 0.010 ng/mL (< 0.028)
[2019-09-02 18:41] VITALS: BMI 24.6
[2019-09-02] MEDS ORDERED: hydrOXYzine Pamoate 25 mg Capsule PO PRN (19:27)
[2019-09-02] MEDS ORDERED: Senokot S 8.6-50 MG TAB PO PRN (19:27)
[2019-09-02] MEDS ORDERED: Melatonin 3 MG TAB PO PRN (19:27)
[2019-09-02] MEDS ORDERED: Calcium Carbonate 500 MG ChewTAB PO PRN (19:27)
[2019-09-02] MEDS ORDERED: Enoxaparin Sodium 40 MG/0.4 ML SYRINGE SC SCH (19:30)
[2019-09-02] MEDS ORDERED: Nicotine 21 MG PATCH TD SCH (20:00)
[2019-09-02 20:56] LABS: Hemoglobin A1c 4.7 % (4.0-6.0)
[2019-09-02 21:17] LABS: Troponin I 0.052 ng/mL (< 0.028)
[2019-09-02] MEDS: Acetaminophen 325 MG TAB PO PRN (22:07)
[2019-09-03 00:07] LABS: Troponin I 0.031 ng/mL (< 0.028)
[2019-09-03 05:16] LABS: Cardiac Risk 2.2 (Less than 4.5)
--- NOTE | 2019-09-03 05:59 | PDOC.FM ---
- Subjective Subjective: Pt notes improved breathing with nebulizers overnight. She denies experiencing any fevers or chills. Notes a continuation in her cough without sputum production. Is tearful on exam for possible discharge today stating that she cannot return home in her current state. I addressed her concerns and assured her she would not be discharged prematurely and we would work today to get her outpt medications arranged so she is ready for discharge when the time comes. - Objective Vital Signs & Weight: Vital Signs (12 hours) Temp Pulse Resp BP BP Pulse Ox 09/03/19 04:30 53 L 18 107/55 L 96 09/03/19 02:19 51 L 14 09/03/19 00:28 51 L 16 09/02/19 23:00 97.6 F 62 14 101/61 98 09/02/19 18:20 96.4 F L 70 20 114/54 L 96 Weight Admit Weight 67.132 kg Weight 67.132 kg Result Diagrams: 09/02/19 14:46 09/02/19 14:46 Phys Exam - Physical Examination Constitutional: NAD HEENT: moist MMs, sclera anicteric Neck: supple, full ROM + expiratory wheezing and rhonci, good air movement in all chiu Cardiovascular: RRR, no significant murmur Gastrointestinal: soft, non-tender Musculoskeletal: no edema, pulses present Neurological: non-focal, moves all 4 limbs Psychiatric: normal affect, A&O x 3 Skin: no rash, cap refill <2 seconds Dx/Plan (1) COPD exacerbation Code(s): J44.1 - CHRONIC OBSTRUCTIVE PULMONARY DISEASE W (ACUTE) EXACERBATION Status: Acute (2) Chest pain Code(s): R07.9 - CHEST PAIN, UNSPECIFIED Status: Acute Qualifiers: Chest pain type: intercostal pain Qualified Code(s): R07.82 - Intercostal pain (3) Anxiety Code(s): F41.9 - ANXIETY DISORDER, UNSPECIFIED Status: Chronic (4) Tobacco abuse Code(s): Z72.0 - TOBACCO USE Status: Chronic - Plan Plan: 59yo CF with h/o COPD, anxiety, tob abuse presents with atypical CP and COPD exacerbation. COPD exacerbation - Oxygen saturations appropriate overnight on RA - Duo-nebs overnight improved breathing, will transition to prn nebs - Will cont Prednisone 40mg daily x5d - Continue Azithro x3d - Will need to establish home inhaler regimen prior to discharge Atypical chest pain, likely costochondritis from chronic cough - Trops intermittently low indeterminate range, likely demand ischemia related to COPD exacerbation - Chest pain only present when coughing and on palpation - Heart score 2 - Pt states recent cardiac workup at [place], awaiting records - Tylenol prn Anxiety - chronic, no home meds - Vistaril TID prn Tob abuse - nicotine patch, encourage cessation PCP: JUAN Flaherty IVF: SL Diet: Regular DVT: Lovenox Dispo: Admit to tele obs for acute COPD exacerbation and indeterminate trop. Respiratory status improving. Anticipate hospitalization < 48 hours. Addendum - Attending - Attending Attestation Date/Time: 09/03/19 1219 I personally evaluated the patient and discussed the management with Dr. Vaughan I agree with the History, Examination, Assessment and Plan documented above with any addition or exceptions noted below.Stable for d/c if maintains oxygen saturation on RA and able to obtain outpatient RX.
[2019-09-03] MEDS ORDERED: predniSONE 20 MG TAB PO SCH (08:00)
[2019-09-03] MEDS ORDERED: Azithromycin 250 MG TAB PO SCH (09:00)
[2019-09-03] MEDS ORDERED: Enoxaparin Sodium 40 MG/0.4 ML SYRINGE SC SCH (09:00)
[2019-09-03] MEDS: Acetaminophen 325 MG TAB PO PRN (09:16)
[2019-09-03 11:54] VITALS: BP 131/60; TEMP 98.2
--- NOTE | 2019-09-04 02:06 | DIS ---
DATE OF ADMISSION: 09/02/2019 DATE OF DISCHARGE: 09/03/2019 ADMITTING ATTENDING: Kareem Duque MD DISCHARGE ATTENDING: Kareem Duque MD RESIDENT: Darci Vaughan DO. CONSULTS: None. PROCEDURES: None. IMAGING: Chest x-ray, findings, no acute cardiopulmonary process. PRIMARY DIAGNOSES: Chronic obstructive pulmonary disease exacerbation, costochondritis. SECONDARY DIAGNOSES: Anxiety, atypical chest pain, tobacco abuse. DISCHARGE MEDICATIONS: 1. Proventil HFA 2 puffs q.4 hours p.r.n. 2. Azithromycin 500 mg p.o. daily for one day. 3. DuoNeb 3 mL q.4 hours p.r.n. 4. Prednisone 40 mg p.o. daily x4 days. 5. Spiriva Respimat two inhalations daily. HISTORY OF PRESENT ILLNESS AND HOSPITAL COURSE: The patient is a 59-year-old female with recent diagnosis of COPD, who presents to the ED for complaints of chest pain and shortness of breath. The patient states she was recently hospitalized in [place] for similar complaints and was diagnosed with COPD at that time and had a cardio workup that was performed that was negative. The patient was subsequently discharged with home inhalers, however, could not afford it and did not pick these up. She endorses a productive cough of clear sputum and notes a single blood clot in her sputum the day prior. In the ED, the patient received DuoNeb and Solu-Medrol and was found to have an indeterminate troponin and was subsequently admitted to [facility]. Throughout her stay, the patient received intermittent DuoNebs overnight and noted improvement in her shortness of breath. The patient remained on room air with appropriate oxygen saturations greater than 92% throughout her stay. On the second day of her admission, the patient's DuoNebs were changed to p.r.n. and were no longer utilized by the patient due to appropriate pulmonary status. The patient was continued on azithromycin and prednisone for her COPD exacerbation to continue on an outpatient basis. Records from [place] admission were obtained, which did not show a stress test; however, the patient was adamant that this was performed and was negative. The patient's prescriptions were sent to the pharmacy and pharmacy was contacted to assess what the patient's [id number] cost would be; however, they stated that the patient would need to come in and bring her insurance card before they can assess what the patient would need to pay. The patient was instructed on this and stated that she would need to follow up with her primary care physician relatively soon if she is not able to obtain her medications and also to address her [place] admission. The patient expressed understanding of all this and agreed to follow up with her PCP, Dr. Flaherty within the next several days. At the time of admission, the patient was continuing the saturation in the upper 90s on room air, denying any significant shortness of breath. Troponins had downtrended throughout her admission. TSH was found to be within normal range. Cholesterol panel was within normal limits. DISCHARGE INSTRUCTIONS: 1. Location: Home. 2. Diet: Heart healthy. 3. Activity: As tolerated by cardiopulmonary limits. 4. Follow up with PCP, Dr. Flaherty within the next 3-7 days. Job ID: [id number]
--- NOTE | 2019-09-06 14:25 | EKG ---
Test Reason : Blood Pressure : / mmHG Vent. Rate : 075 BPM Atrial Rate : 075 BPM P-R Int : 146 ms QRS Dur : 074 ms QT Int : 406 ms P-R-T Axes : 029 044 043 degrees QTc Int : 453 ms Normal sinus rhythm Septal infarct , age undetermined Abnormal ECG Confirmed by LIZZETH AMBROSE DO ([id number]), dictionary editor KATARINA RICARDO ([id number]) on 09/06/2019 2:25:12 PM Referred By: Confirmed By:LIZZETH AMBROSE DO
== END 2019-09-03 15:48 | disposition home or self-care (01) ==
LOC: ERS 14:32 → 2SW 18:26
PROVIDERS: ADMIT Family Medicine; ATTEND Family Medicine
DX: J44.1 Chronic obstructive pulmonary disease with (acute) exacerbation (principal); M94.0 Chondrocostal junction syndrome [Tietze]; F41.9 Anxiety disorder, unspecified; F32.9 Major depressive disorder, single episode, unspecified; F17.210 Nicotine dependence, cigarettes, uncomplicated; D75.1 Secondary polycythemia
CPT/HCPCS: 71046; 80061; 82553; 83036; 83880; 84145; 84484 ×2; 87804 ×2; 90732; 93005; 94640 ×3; 94644; 96372 ×2; 96374; 97139 ×2; 97535; 99285; G0009; G0378 ×3; 36415; 80053; 84443; 85025; 90471; J1650; J2930; J7512; J7611; J7620; Q0177

== ENCOUNTER 2021-09-27 10:05 | Emergency (ER) | payer MEDICAID, MEDICARE ==
[2021-09-27 11:12] LABS: #Eosinphils 0.2 thou/uL (0.0-0.7); #Lymphocytes 2.3 thou/uL (1.20-3.40); #Monocytes 0.5 thou/uL (0.11-0.59); #Neutrophils 5.5 thou/uL (1.40-6.50); %Basophils 0.3 % (0.0-1.0); %Eosinophils 2.5 % (0.0-10.0); %Lymphocytes 27.1 % (21.0-51.0); %Monocytes 5.3 % (0.0-10.0); %Neutrophils 64.8 % (42.0-75.0); Hemoglobin 14.7 g/dL (12.0-16.0); Mean Corpuscular HGB CONC 32.6 g/dL (32.0-36.0); Mean Corpuscular Hemoglobin 31.7 pg (27.0-31.0); Mean Corpuscular Volume 97.2 fL (78.0-98.0); Mean Platelet Volume 7.9 fL (7.4-10.4); Platelet Count 284 thou/uL (130-400); RBC Distribution Width 13.1 % (11.5-14.5); Red Blood Cell (RBC) Count 4.64 mill/uL (4.20-5.40); White Blood Cell (WBC) Count 8.5 thou/uL (4.8-10.8)
[2021-09-27] MEDS ORDERED: Albuterol 200 PUFF (6.7GM INHALER) ONE (11:21)
[2021-09-27 11:55] LABS: Albumin 3.6 g/dL (3.4-4.8)
[2021-09-27 11:56] LABS: Chloride 104 mmol/L (98-107); Potassium 3.5 mmol/L (3.5-5.1)
[2021-09-27 11:57] LABS: Calcium 8.8 mg/dL (7.8-10.44); Sodium 135 mmol/L (136-145)
[2021-09-27 11:58] LABS: Globulin 3.2 g/dL (2.4-3.5); Glucose 115 mg/dL (80-115); Protein, Total 6.8 g/dL (5.8-8.1)
[2021-09-27 11:59] LABS: Anion Gap 16 mmol/L (10-20); Bilirubin, Total 0.5 mg/dL (0.2-1.2); Carbon Dioxide 19 mmol/L (23-31)
[2021-09-27 12:13] LABS: ALT (SGPT) 9 U/L (8-55); AST (SGOT) 17 U/L (5-34); BUN (Urea Nitrogen) 11 mg/dL (9.8-20.1); Calc. Creatinine Clearance 0 mL/min (70-130)
[2021-09-27 13:12] LABS: Alkaline Phosphatase 63 U/L (40-110)
== END 2021-09-27 13:17 | disposition home or self-care (01) ==
LOC: ERS 10:05
DX: J44.1 Chronic obstructive pulmonary disease with (acute) exacerbation (principal); F17.210 Nicotine dependence, cigarettes, uncomplicated; M19.90 Unspecified osteoarthritis, unspecified site; Z87.19 Personal history of other diseases of the digestive system
CPT/HCPCS: 36415; 71045; 80053; 83880; 84484; 85025; 93005; 94664

== ENCOUNTER 2021-12-31 13:48 | Inpatient (IN) | payer MEDICARE, MEDICAID ==
[~2021-12-31 13:48] MED LIST: Iopamidol-370 76% 500 ML 1 ML ONE
[2021-12-31 14:12] LABS: #Eosinphils 0.2 thou/uL (0.0-0.7); #Lymphocytes 2.8 thou/uL (1.20-3.40); #Monocytes 0.6 thou/uL (0.11-0.59); #Neutrophils 5.2 thou/uL (1.40-6.50); %Basophils 0.4 % (0.0-1.0); %Eosinophils 1.9 % (0.0-10.0); %Lymphocytes 32.3 % (21.0-51.0); %Monocytes 6.8 % (0.0-10.0); %Neutrophils 58.7 % (42.0-75.0); Hemoglobin 16.6 g/dL (12.0-16.0); Mean Corpuscular Hemoglobin 33.4 pg (27.0-31.0); Mean Corpuscular Volume 98.3 fL (78.0-98.0); Mean Platelet Volume 7.2 fL (7.4-10.4); Platelet Count 350 thou/uL (130-400); RBC Distribution Width 12.4 % (11.5-14.5); Red Blood Cell (RBC) Count 4.96 mill/uL (4.20-5.40); White Blood Cell (WBC) Count 8.8 thou/uL (4.8-10.8)
[2021-12-31 14:34] LABS: ALT (SGPT) 7 U/L (8-55); AST (SGOT) 14 U/L (5-34); Alkaline Phosphatase 76 U/L (40-110); Anion Gap 17 mmol/L (10-20); BUN (Urea Nitrogen) 11 mg/dL (9.8-20.1); Bilirubin, Total 0.7 mg/dL (0.2-1.2); Calc. Creatinine Clearance 0 mL/min (70-130); Calcium 9.2 mg/dL (7.8-10.44); Carbon Dioxide 19 mmol/L (23-31); Chloride 104 mmol/L (98-107); Globulin 3.3 g/dL (2.4-3.5); Glucose 111 mg/dL (80-115); Potassium 4.1 mmol/L (3.5-5.1); Protein, Total 7.3 g/dL (5.8-8.1); Sodium 136 mmol/L (136-145)
[2021-12-31] MEDS ORDERED: Acetaminophen 500 MG TAB ONE (16:58)
[2021-12-31 16:59] LABS: INR-International Normal Ratio 0.9; PTT 30.6 sec (22.9-36.1); Prothrombin Time 12.3 sec (12.0-14.7)
[2021-12-31] MEDS ORDERED: Docusate 100 MG CAP PO PRN (17:54)
[2021-12-31] MEDS ORDERED: Mag-Al 1200 mg/1200 mg/30 ML UDCUP PO PRN (17:54)
[2021-12-31] MEDS ORDERED: Senokot S 8.6-50 MG TAB PO PRN (17:54)
[2021-12-31] MEDS ORDERED: niCARdipine 25 MG in Sodium Chloride 0.9% 250 ML 250 ML IVPB PRN (17:54)
[2021-12-31] MEDS ORDERED: Milk Of Magnesia 30 ML UDCUP PO PRN (17:54)
[2021-12-31] MEDS ORDERED: Bisacodyl 10 MG SUPP PR PRN (17:54)
[2021-12-31] MEDS ORDERED: hydrALAZINE 20 MG/ML VIAL SLOW IVP PRN (17:54)
[2021-12-31] MEDS ORDERED: Ondansetron ODT 4 MG TAB PO PRN (17:54)
[2021-12-31] MEDS ORDERED: Labetalol HCl 100 MG/20 ML VIAL SLOW IVP PRN (17:54)
[2021-12-31] MEDS ORDERED: Ondansetron PF 4 MG/2 ML Vial IVP PRN (17:54)
[2021-12-31] MEDS: Atorvastatin Calcium 40 MG TAB PO SCH (20:39)
[2021-12-31] MEDS: Communication Order-Pharmacy FS SCH (21:05)
[2021-12-31 21:16] LABS: SARS-CoV-2 NAA Rapid Test Not Detected (NotDetected)
[2022-01-01] MEDS: Acetaminophen 325 MG TAB PO PRN ×2 (04:38→17:55)
[2022-01-01] MEDS ORDERED: ALPRAZolam 0.25 MG TAB PO SCH (13:00)
[2022-01-01] MEDS ORDERED: Dicyclomine 10 MG CAP PO PRN (13:04)
[2022-01-01] MEDS ORDERED: Ondansetron ODT 4 MG TAB PO PRN (13:04)
[2022-01-01] MEDS ORDERED: traZODone HCl 50 MG TAB PO PRN (13:04)
[2022-01-01] MEDS ORDERED: Albuterol Sulfate 2.5 mg/3 ml Neb NEB PRN (13:20)
[2022-01-01] MEDS ORDERED: Lorazepam 2 MG/ML VIAL SLOW IVP SCH (15:15)
[2022-01-01] MEDS: Communication Order-Pharmacy FS SCH (17:57)
[2022-01-01] MEDS: Ipratropium Bromide 2.5 ml Neb NEB SCH ×2 (18:34→23:17)
[2022-01-01] MEDS: Atorvastatin Calcium 40 MG TAB PO SCH (20:30)
[2022-01-02 03:34] LABS: #Eosinphils 0.3 thou/uL (0.0-0.7); #Lymphocytes 2.5 thou/uL (1.20-3.40); #Monocytes 0.7 thou/uL (0.11-0.59); #Neutrophils 4.3 thou/uL (1.40-6.50); %Basophils 0.3 % (0.0-1.0); %Eosinophils 4.2 % (0.0-10.0); %Lymphocytes 32.1 % (21.0-51.0); %Monocytes 8.7 % (0.0-10.0); %Neutrophils 54.7 % (42.0-75.0); Hemoglobin 14.5 g/dL (12.0-16.0); Mean Corpuscular HGB CONC 34.1 g/dL (32.0-36.0); Mean Corpuscular Hemoglobin 33.6 pg (27.0-31.0); Mean Corpuscular Volume 98.6 fL (78.0-98.0); Mean Platelet Volume 7.6 fL (7.4-10.4); Platelet Count 300 thou/uL (130-400); RBC Distribution Width 12.3 % (11.5-14.5); Red Blood Cell (RBC) Count 4.33 mill/uL (4.20-5.40); White Blood Cell (WBC) Count 7.9 thou/uL (4.8-10.8)
[2022-01-02 03:53] LABS: Anion Gap 14 mmol/L (10-20); BUN (Urea Nitrogen) 11 mg/dL (9.8-20.1); Calc. Creatinine Clearance 110 mL/min (70-130); Calcium 8.4 mg/dL (7.8-10.44); Carbon Dioxide 21 mmol/L (23-31); Chloride 106 mmol/L (98-107); Glucose 93 mg/dL (80-115); Sodium 137 mmol/L (136-145)
[2022-01-02] MEDS: Acetaminophen 325 MG TAB PO PRN (03:55)
[2022-01-02] MEDS ORDERED: Ipratropium Bromide 2.5 ml Neb ONE (08:16)
[2022-01-02] MEDS: Ipratropium Bromide 2.5 ml Neb NEB SCH ×3 (08:18→18:13)
[2022-01-02] MEDS: predniSONE 20 MG TAB PO SCH (09:15)
[2022-01-02] MEDS: Aspirin 81 mg Enteric Coated Tablet PO SCH (09:56)
[2022-01-02] MEDS: Enoxaparin Sodium 40 MG/0.4 ML SYRINGE SC SCH (09:57)
[2022-01-02] MEDS ORDERED: busPIRone HCl 5 MG TAB PO SCH (10:00)
[2022-01-02] MEDS ORDERED: DULoxetine 60 MG CAP PO SCH (10:00)
[2022-01-02] MEDS: Atorvastatin Calcium 40 MG TAB PO SCH (20:29)
[2022-01-02] MEDS: busPIRone HCl 5 MG TAB PO SCH (20:29)
[2022-01-02] MEDS: traZODone HCl 150 MG TAB PO SCH (20:29)
[2022-01-03] MEDS: Ipratropium Bromide 2.5 ml Neb NEB SCH ×5 (00:18→23:40)
[2022-01-03 08:08] LABS: #Eosinphils 0.2 thou/uL (0.0-0.7); #Monocytes 0.6 thou/uL (0.11-0.59); %Basophils 0.4 % (0.0-1.0); %Eosinophils 2.5 % (0.0-10.0); %Lymphocytes 38.3 % (21.0-51.0); %Monocytes 7.5 % (0.0-10.0); %Neutrophils 51.3 % (42.0-75.0); Hemoglobin 14.5 g/dL (12.0-16.0); Mean Corpuscular HGB CONC 32.8 g/dL (32.0-36.0); Mean Corpuscular Hemoglobin 32.2 pg (27.0-31.0); Mean Corpuscular Volume 98.4 fL (78.0-98.0); Mean Platelet Volume 7.4 fL (7.4-10.4); Platelet Count 269 thou/uL (130-400); RBC Distribution Width 12.2 % (11.5-14.5); Red Blood Cell (RBC) Count 4.49 mill/uL (4.20-5.40); White Blood Cell (WBC) Count 7.7 thou/uL (4.8-10.8)
[2022-01-03] MEDS: busPIRone HCl 5 MG TAB PO SCH ×2 (08:17→20:30)
[2022-01-03] MEDS: Aspirin 81 mg Enteric Coated Tablet PO SCH (08:17)
[2022-01-03] MEDS: Enoxaparin Sodium 40 MG/0.4 ML SYRINGE SC SCH (08:17)
[2022-01-03] MEDS: predniSONE 20 MG TAB PO SCH (08:17)
[2022-01-03] MEDS: DULoxetine 60 MG CAP PO SCH (08:17)
[2022-01-03 08:23] LABS: Anion Gap 13 mmol/L (10-20); BUN (Urea Nitrogen) 10 mg/dL (9.8-20.1); Calc. Creatinine Clearance 106 mL/min (70-130); Calcium 8.9 mg/dL (7.8-10.44); Carbon Dioxide 22 mmol/L (23-31); Chloride 106 mmol/L (98-107); Glucose 79 mg/dL (80-115); Potassium 3.6 mmol/L (3.5-5.1); Sodium 137 mmol/L (136-145)
[2022-01-03] MEDS: Acetaminophen/Codeine 30-300mg Tablet PO PRN (10:01)
[2022-01-03] MEDS: Atorvastatin Calcium 40 MG TAB PO SCH (20:30)
[2022-01-03] MEDS: traZODone HCl 150 MG TAB PO SCH (20:30)
[2022-01-04 04:19] LABS: #Eosinphils 0.1 thou/uL (0.0-0.7); #Lymphocytes 2.9 thou/uL (1.20-3.40); #Monocytes 0.6 thou/uL (0.11-0.59); #Neutrophils 4.6 thou/uL (1.40-6.50); %Eosinophils 1.1 % (0.0-10.0); %Lymphocytes 35.3 % (21.0-51.0); %Neutrophils 56.4 % (42.0-75.0); Hemoglobin 13.5 g/dL (12.0-16.0); Mean Corpuscular HGB CONC 33.2 g/dL (32.0-36.0); Mean Corpuscular Hemoglobin 32.8 pg (27.0-31.0); Mean Corpuscular Volume 98.7 fL (78.0-98.0); Mean Platelet Volume 7.9 fL (7.4-10.4); Platelet Count 277 thou/uL (130-400); RBC Distribution Width 12.2 % (11.5-14.5); White Blood Cell (WBC) Count 8.1 thou/uL (4.8-10.8)
[2022-01-04 04:45] LABS: Anion Gap 11 mmol/L (10-20); BUN (Urea Nitrogen) 16 mg/dL (9.8-20.1); Calc. Creatinine Clearance 114 mL/min (70-130); Calcium 8.5 mg/dL (7.8-10.44); Carbon Dioxide 24 mmol/L (23-31); Chloride 104 mmol/L (98-107); Glucose 106 mg/dL (80-115); Potassium 3.9 mmol/L (3.5-5.1); Sodium 135 mmol/L (136-145)
[2022-01-04] MEDS: Ipratropium Bromide 2.5 ml Neb NEB SCH ×3 (07:20→18:40)
[2022-01-04] MEDS: busPIRone HCl 5 MG TAB PO SCH ×2 (08:46→20:47)
[2022-01-04] MEDS: Aspirin 81 mg Enteric Coated Tablet PO SCH (08:46)
[2022-01-04] MEDS: DULoxetine 60 MG CAP PO SCH (08:47)
[2022-01-04] MEDS: predniSONE 20 MG TAB PO SCH (08:47)
[2022-01-04] MEDS: Enoxaparin Sodium 40 MG/0.4 ML SYRINGE SC SCH (08:47)
[2022-01-04] MEDS: Acetaminophen/Codeine 30-300mg Tablet PO PRN (11:48)
[2022-01-04] MEDS: traZODone HCl 150 MG TAB PO SCH (20:46)
[2022-01-04] MEDS: Atorvastatin Calcium 40 MG TAB PO SCH (20:46)
[2022-01-05] MEDS: Ipratropium Bromide 2.5 ml Neb NEB SCH ×4 (01:14→19:30)
[2022-01-05] MEDS ORDERED: DOPamine 400 MG/D5W 250 ML 250 ML IVPB SCH (03:00)
[2022-01-05 03:09] LABS: #Eosinphils 0.1 thou/uL (0.0-0.7); #Monocytes 0.5 thou/uL (0.11-0.59); #Neutrophils 4.9 thou/uL (1.40-6.50); %Basophils 0.3 % (0.0-1.0); %Eosinophils 0.7 % (0.0-10.0); %Monocytes 6.4 % (0.0-10.0); %Neutrophils 57.5 % (42.0-75.0); Hemoglobin 13.6 g/dL (12.0-16.0); Mean Corpuscular HGB CONC 33.5 g/dL (32.0-36.0); Mean Corpuscular Hemoglobin 33.2 pg (27.0-31.0); Mean Corpuscular Volume 98.9 fL (78.0-98.0); Mean Platelet Volume 7.5 fL (7.4-10.4); Platelet Count 263 thou/uL (130-400); RBC Distribution Width 12.1 % (11.5-14.5); Red Blood Cell (RBC) Count 4.11 mill/uL (4.20-5.40); White Blood Cell (WBC) Count 8.5 thou/uL (4.8-10.8)
[2022-01-05 03:31] LABS: Troponin I 0.012 ng/mL (< 0.028)
[2022-01-05 04:17] LABS: Anion Gap 16 mmol/L (10-20); BUN (Urea Nitrogen) 15 mg/dL (9.8-20.1); Calc. Creatinine Clearance 108 mL/min (70-130); Calcium 8.6 mg/dL (7.8-10.44); Carbon Dioxide 19 mmol/L (23-31); Cardiac Risk 2.6 (Less than 4.5); Chloride 107 mmol/L (98-107); Cholesterol 110 mg/dl (< 200 Desired); Glucose 88 mg/dL (80-115); HDL Cholesterol 42 mg/dL (>60 Neg Risk); LDL Cholesterol, Calculated 55 mg/dL; Potassium 4.5 mmol/L (3.5-5.1); Sodium 137 mmol/L (136-145); Triglycerides 66 mg/dL (Less than 150)
[2022-01-05 05:42] VITALS: BMI 26.4
[2022-01-05] MEDS: busPIRone HCl 5 MG TAB PO SCH ×2 (08:59→21:41)
[2022-01-05] MEDS: DULoxetine 60 MG CAP PO SCH (08:59)
[2022-01-05] MEDS: Aspirin 81 mg Enteric Coated Tablet PO SCH (08:59)
[2022-01-05] MEDS: Acetaminophen/Codeine 30-300mg Tablet PO PRN (08:59)
[2022-01-05] MEDS: predniSONE 20 MG TAB PO SCH (08:59)
[2022-01-05] MEDS: Enoxaparin Sodium 40 MG/0.4 ML SYRINGE SC SCH (09:00)
[2022-01-05] MEDS: Atorvastatin Calcium 40 MG TAB PO SCH (21:41)
[2022-01-05] MEDS: traZODone HCl 150 MG TAB PO SCH (21:41)
[2022-01-06] MEDS: Ipratropium Bromide 2.5 ml Neb NEB SCH ×3 (02:07→11:25)
[2022-01-06 04:53] LABS: #Basophils 0.1 thou/uL (0.0-0.2); #Eosinphils 0.2 thou/uL (0.0-0.7); #Lymphocytes 3.3 thou/uL (1.20-3.40); #Monocytes 0.6 thou/uL (0.11-0.59); #Neutrophils 4.1 thou/uL (1.40-6.50); %Basophils 0.6 % (0.0-1.0); %Eosinophils 1.9 % (0.0-10.0); %Lymphocytes 40.1 % (21.0-51.0); %Monocytes 7.5 % (0.0-10.0); %Neutrophils 49.9 % (42.0-75.0); Hemoglobin 13.8 g/dL (12.0-16.0); Mean Corpuscular Hemoglobin 31.5 pg (27.0-31.0); Mean Corpuscular Volume 98.7 fL (78.0-98.0); Mean Platelet Volume 7.7 fL (7.4-10.4); Platelet Count 283 thou/uL (130-400); RBC Distribution Width 12.1 % (11.5-14.5); Red Blood Cell (RBC) Count 4.38 mill/uL (4.20-5.40); White Blood Cell (WBC) Count 8.3 thou/uL (4.8-10.8)
[2022-01-06 05:14] LABS: Anion Gap 11 mmol/L (10-20); BUN (Urea Nitrogen) 17 mg/dL (9.8-20.1); Calc. Creatinine Clearance 112 mL/min (70-130); Calcium 8.5 mg/dL (7.8-10.44); Carbon Dioxide 26 mmol/L (23-31); Chloride 103 mmol/L (98-107); Glucose 89 mg/dL (80-115); Sodium 136 mmol/L (136-145)
[2022-01-06] MEDS: Aspirin 81 mg Enteric Coated Tablet PO SCH (08:43)
[2022-01-06] MEDS: DULoxetine 60 MG CAP PO SCH (08:43)
[2022-01-06] MEDS: predniSONE 20 MG TAB PO SCH (08:44)
[2022-01-06] MEDS: busPIRone HCl 5 MG TAB PO SCH (08:44)
[2022-01-06] MEDS: Enoxaparin Sodium 40 MG/0.4 ML SYRINGE SC SCH (08:44)
[2022-01-06 12:15] VITALS: BP 123/68; TEMP 97.3
== END 2022-01-06 15:40 | disposition home health service (06) | DRG 62 ==
LOC: ERS 13:48 → CCU 16:48 → NEURO 01-04 03:51 → CCU 01-05 03:35 → NEURO 01-05 16:41
PROVIDERS: ADMIT Family Medicine; ATTEND Family Medicine
DX: G45.9 Transient cerebral ischemic attack, unspecified (principal); E87.2 Acidosis; G81.94 Hemiplegia, unspecified affecting left nondominant side; R47.01 Aphasia; R00.1 Bradycardia, unspecified; F41.9 Anxiety disorder, unspecified; M54.12 Radiculopathy, cervical region; J44.9 Chronic obstructive pulmonary disease, unspecified; I10 Essential (primary) hypertension; E78.5 Hyperlipidemia, unspecified; R47.1 Dysarthria and anarthria; F12.90 Cannabis use, unspecified, uncomplicated; I73.9 Peripheral vascular disease, unspecified; F17.210 Nicotine dependence, cigarettes, uncomplicated; G47.00 Insomnia, unspecified; M19.90 Unspecified osteoarthritis, unspecified site; I44.1 Atrioventricular block, second degree; F31.9 Bipolar disorder, unspecified; F43.10 Post-traumatic stress disorder, unspecified; Z20.822 Contact with and (suspected) exposure to COVID-19; Z71.6 Tobacco abuse counseling; Z79.899 Other long term (current) drug therapy; Z90.49 Acquired absence of other specified parts of digestive tract; Z98.51 Tubal ligation status; Z98.890 Other specified postprocedural states; Z72.89 Other problems related to lifestyle; Z80.42 Family history of malignant neoplasm of prostate; Z80.1 Family history of malignant neoplasm of trachea, bronchus and lung; Z80.0 Family history of malignant neoplasm of digestive organs; Z82.49 Family history of ischemic heart disease and other diseases of the circulatory system
CPT/HCPCS: 36415; 37195; 70450; 70496; 70498; 70551; 72125; 80048; 80053; 80061; 83036; 83735; 84443; 84484; 85025; 85610; 85730; 93005; 93010; 93306; 94640; 94760; 99292; J1650; J2997; J7512; Q9967; U0002

== ENCOUNTER 2022-03-12 13:34 | Emergency (ER) | payer MEDICARE, OTHER ==
[2022-03-12 13:56] LABS: #Basophils 0.1 thou/uL (0.0-0.2); #Eosinphils 0.2 thou/uL (0.0-0.7); #Lymphocytes 1.9 thou/uL (1.20-3.40); #Monocytes 0.7 thou/uL (0.11-0.59); #Neutrophils 5.3 thou/uL (1.40-6.50); %Basophils 0.8 % (0.0-1.0); %Eosinophils 2.9 % (0.0-10.0); %Lymphocytes 23.2 % (21.0-51.0); %Neutrophils 65.1 % (42.0-75.0); Hemoglobin 14.6 g/dL (12.0-16.0); Mean Corpuscular HGB CONC 32.8 g/dL (32.0-36.0); Mean Corpuscular Hemoglobin 32.6 pg (27.0-31.0); Mean Corpuscular Volume 99.5 fL (78.0-98.0); Mean Platelet Volume 7.9 fL (7.4-10.4); Platelet Count 298 thou/uL (130-400); RBC Distribution Width 12.2 % (11.5-14.5); Red Blood Cell (RBC) Count 4.47 mill/uL (4.20-5.40); White Blood Cell (WBC) Count 8.2 thou/uL (4.8-10.8)
[2022-03-12 14:06] LABS: Prothrombin Time 12.9 sec (12.0-14.7)
[2022-03-12 14:07] LABS: PTT 30.9 sec (22.9-36.1)
[2022-03-12 14:16] LABS: Acetaminophen Less than 10.0 mcg/mL (10.0-30.0); Alcohol Less than 10 mg/dL (Less than 10); Salicylate Less than 8.0 mg/dL (15.0-30.0)
[2022-03-12 14:18] LABS: ALT (SGPT) 8 U/L (8-55); AST (SGOT) 14 U/L (5-34); Albumin 3.7 g/dL (3.4-4.8); Alkaline Phosphatase 86 U/L (40-110); Anion Gap 14 mmol/L (10-20); BUN (Urea Nitrogen) 9 mg/dL (9.8-20.1); Bilirubin, Total 0.4 mg/dL (0.2-1.2); CK (CPK) 26 U/L (29-168); Calc. Creatinine Clearance 0 mL/min (70-130); Calcium 8.9 mg/dL (7.8-10.44); Carbon Dioxide 22 mmol/L (23-31); Chloride 107 mmol/L (98-107); Estimated GFR 100; Globulin 3.2 g/dL (2.4-3.5); Glucose 85 mg/dL (80-115); Protein, Total 6.9 g/dL (5.8-8.1); Sodium 139 mmol/L (136-145)
[2022-03-12 14:39] LABS: Bilirubin Negative (Negative); Blood, Urine Negative (Negative); Clarity Clear (Clear); Glucose, Urine (Dipstick) Normal (Negative); Ketone, Urine Negative (Negative); Leukocyte Negative Leu/uL (Negative); Nitrite Negative (Negative); Protein, Urine (Dipstick) Negative (Neg-Trace); Specific Gravity, Urine 1.022 (1.002-1.036)
[2022-03-12 14:50] LABS: Amphetamine Not Detected (NotDetected); Barbiturates Screen Not Detected (NotDetected); Benzodiazepine Screen Not Detected (NotDetected); Cocaine Metabolite Screen Not Detected (NotDetected); Methadone Not Detected (NotDetected); Methamphetamine Not Detected (NotDetected); Opiate Screen Not Detected (NotDetected); Oxycodone Screen Not Detected (NotDetected); Phencyclidine (PCP) Not Detected (NotDetected); THC/Cannabinoid Screen Detected (NotDetected); Tricyclic Screen Detected (NotDetected)
[2022-03-12] MEDS ORDERED: Iopamidol-370 76% 500 ML 1 ML ONE (14:50)
[2022-03-12 15:08] LABS: SARS-CoV-2 NAA Rapid Test Not Detected (NotDetected)
[2022-03-12] MEDS ORDERED: Acetaminophen 500 MG TAB ONE (15:13)
== END 2022-03-12 15:45 | disposition home or self-care (01) ==
LOC: ERS 13:34
DX: R47.89 Other speech disturbances (principal); J44.9 Chronic obstructive pulmonary disease, unspecified; F17.210 Nicotine dependence, cigarettes, uncomplicated; Z79.899 Other long term (current) drug therapy; Z20.822 Contact with and (suspected) exposure to COVID-19; Z86.73 Personal history of transient ischemic attack (TIA), and cerebral infarction without residual deficits
CPT/HCPCS: 70450; 70496; 70498; 71045; 80306; 80307; 81003; 82550; 82962; 83735; 84484; 85610; 85730; 93005; 99285; U0002; 36415; 36416; 80053; 84443; 85025; Q9967

== ENCOUNTER 2022-04-15 13:50 | Emergency (ER) | payer OTHER ==
[2022-04-15] MEDS ORDERED: Ketorolac Tromethamine 30 MG/ML VIAL ONE (14:29)
[2022-04-15] MEDS ORDERED: HYDROcodone/Acetaminophen 5/325 mg Tablet ONE (14:29)
== END 2022-04-15 17:16 | disposition home or self-care (01) ==
LOC: ERS 13:50
DX: S20.211A Contusion of right front wall of thorax, initial encounter (principal); J44.9 Chronic obstructive pulmonary disease, unspecified; Z86.73 Personal history of transient ischemic attack (TIA), and cerebral infarction without residual deficits; F17.210 Nicotine dependence, cigarettes, uncomplicated; Z79.82 Long term (current) use of aspirin; Z79.899 Other long term (current) drug therapy; W01.190A Fall on same level from slipping, tripping and stumbling with subsequent striking against furniture, initial encounter
CPT/HCPCS: 96372; J1885

== ENCOUNTER 2022-07-07 09:50 | Emergency (ER) | payer MEDICARE, OTHER ==
[2022-07-07] MEDS ORDERED: Albuterol Sulfate 2.5 mg/3 ml Neb ONE (10:24)
[2022-07-07] MEDS ORDERED: Ipratropium Bromide 2.5 ml Neb ONE (10:25)
[2022-07-07] MEDS ORDERED: Magnesium 2 GM/50 ML BAG (IN WATER) ONE (10:28)
[2022-07-07] MEDS ORDERED: methylPREDNISolone Sod Succ/PF 125 MG/2 ML VIAL ONE (10:28)
[2022-07-07 10:30] LABS: Actual Bicarbonate (HCO3v) 23 mEq/L (22-28); Analyzer IN Cardio ER; Base Excess 3.2 mEq/L (-2.0 to +3.0); Calcium, Ionized (venous) 1.07 mmol/L (1.16-1.32); Chloride (VBG) 104 mmol/L (98-106); Hemoglobin (Hb) 17.4 g/dL (11.7-16.0); Potassium (VBG) 4.19 mmol/L (3.70-5.30); Sodium 136.6 mmol/L (133-146); pH (venous) 7.59 (7.32-7.43)
[2022-07-07 10:40] LABS: #Basophils 0.1 thou/uL (0.0-0.2); #Eosinphils 0.1 thou/uL (0.0-0.7); #Lymphocytes 2.2 thou/uL (1.20-3.40); #Monocytes 0.5 thou/uL (0.11-0.59); #Neutrophils 6.7 thou/uL (1.40-6.50); %Basophils 1.2 % (0.0-1.0); %Eosinophils 0.6 % (0.0-10.0); %Monocytes 5.4 % (0.0-10.0); %Neutrophils 69.8 % (42.0-75.0); Hemoglobin 17.1 g/dL (12.0-16.0); Mean Corpuscular HGB CONC 33.4 g/dL (32.0-36.0); Mean Corpuscular Hemoglobin 32.8 pg (27.0-31.0); Mean Corpuscular Volume 98.3 fl (78.0-98.0); Mean Platelet Volume 7.7 fL (7.4-10.4); Platelet Count 348 10x3/uL (130-400); RBC Distribution Width 12.4 % (11.5-14.5); Red Blood Cell (RBC) Count 5.21 mill/uL (4.20-5.40); White Blood Cell (WBC) Count 9.6 10x3/uL (4.8-10.8)
[2022-07-07 11:02] LABS: ALT (SGPT) 13 U/L (8-55); AST (SGOT) 18 U/L (5-34); Alkaline Phosphatase 82 U/L (40-110); Anion Gap 17 mmol/L (10-20); BUN (Urea Nitrogen) 11 mg/dL (9.8-20.1); Bilirubin, Total 0.7 mg/dL (0.2-1.2); Calc. Creatinine Clearance 0 mL/min (70-130); Calcium 9.7 mg/dL (7.8-10.44); Carbon Dioxide 21 mmol/L (23-31); Chloride 104 mmol/L (98-107); Estimated GFR 94; Globulin 3.9 g/dL (2.4-3.5); Glucose 117 mg/dL (80-115); Potassium 4.5 mmol/L (3.5-5.1); Protein, Total 7.9 g/dL (5.8-8.1); Sodium 137 mmol/L (136-145)
[2022-07-07 11:28] LABS: SARS-CoV-2 NAA Rapid Test Not Detected (NotDetected)
== END 2022-07-07 13:20 | disposition home or self-care (01) ==
LOC: ERS 09:50
DX: R06.00 Dyspnea, unspecified (principal); R50.9 Fever, unspecified; J44.9 Chronic obstructive pulmonary disease, unspecified; F17.210 Nicotine dependence, cigarettes, uncomplicated; Z79.899 Other long term (current) drug therapy; Z20.822 Contact with and (suspected) exposure to COVID-19
CPT/HCPCS: 0241U; 71045; 80053; 82805; 83605; 83880; 84484; 85025; 93005; 96365; 96366; 96375; 99285; J2930; J3475; J7611

== ENCOUNTER 2022-10-01 19:33 | Inpatient (IN) | payer OTHER, MEDICAID ==
[2022-10-01] MEDS ORDERED: Ketorolac Tromethamine 30 MG/ML VIAL ONE (19:54)
[2022-10-01] MEDS ORDERED: Morphine 4 MG/ML VIAL ONE ×2 (19:54→19:56)
[2022-10-01] MEDS ORDERED: Ondansetron PF 4 MG/2 ML Vial ONE (20:15)
[2022-10-01 20:17] LABS: #Basophils 0.1 thou/uL (0.0-0.2); #Eosinphils 0.2 thou/uL (0.0-0.7); #Lymphocytes 3.8 thou/uL (1.20-3.40); #Neutrophils 6.5 thou/uL (1.40-6.50); %Basophils 0.6 % (0.0-1.0); %Lymphocytes 33.1 % (21.0-51.0); %Monocytes 8.2 % (0.0-10.0); %Neutrophils 56.2 % (42.0-75.0); Hemoglobin 15.1 g/dL (12.0-16.0); Mean Corpuscular HGB CONC 33.4 g/dL (32.0-36.0); Mean Corpuscular Hemoglobin 32.6 pg (27.0-31.0); Mean Corpuscular Volume 97.5 fl (78.0-98.0); Platelet Count 353 10x3/uL (130-400); RBC Distribution Width 12.4 % (11.5-14.5); Red Blood Cell (RBC) Count 4.63 mill/uL (4.20-5.40); White Blood Cell (WBC) Count 11.6 10x3/uL (4.8-10.8)
[2022-10-01 20:40] LABS: ALT (SGPT) 10 U/L (8-55); AST (SGOT) 22 U/L (5-34); Albumin 3.9 g/dL (3.4-4.8); Alkaline Phosphatase 82 U/L (40-110); Anion Gap 16 mmol/L (10-20); BUN (Urea Nitrogen) 8 mg/dL (9.8-20.1); Bilirubin, Total 0.4 mg/dL (0.2-1.2); Calc. Creatinine Clearance 0 mL/min (70-130); Calcium 9.2 mg/dL (7.8-10.44); Carbon Dioxide 20 mmol/L (23-31); Chloride 104 mmol/L (98-107); Estimated GFR 97; Globulin 2.9 g/dL (2.4-3.5); Glucose 87 mg/dL (80-115); Lipase 43 U/L (8-78); Magnesium 2.1 mg/dL (1.6-2.6); Potassium 4.1 mmol/L (3.5-5.1); Protein, Total 6.8 g/dL (5.8-8.1); Sodium 136 mmol/L (136-145)
[2022-10-01 21:05] LABS: CKMB 11.2 ng/mL (0-6.6)
[2022-10-01 21:11] LABS: SARS-CoV-2 NAA Rapid Test Not Detected (NotDetected)
[2022-10-01] MEDS ORDERED: Ondansetron PF 4 MG/2 ML Vial IVP PRN (21:42)
[2022-10-01] MEDS ORDERED: Bisacodyl 10 MG SUPP PR PRN (21:42)
[2022-10-01] MEDS ORDERED: Bisacodyl 5 MG TAB PO PRN (21:42)
[2022-10-01 21:52] LABS: Bilirubin Negative (Negative); Blood, Urine Trace (Negative); Clarity Clear (Clear); Glucose, Urine (Dipstick) Normal (Negative); Ketone, Urine Negative (Negative); Leukocyte Negative Leu/uL (Negative); Nitrite Negative (Negative); Protein, Urine (Dipstick) Negative (Neg-Trace); Specific Gravity, Urine 1.006 (1.002-1.036); Urobilinogen Normal mg/dL (Less than 2); pH, Urine 5.5 (5.0-9.0)
[2022-10-01 21:53] LABS: Bacteria/HPF None Seen HPF (None Seen); RBC/HPF 0-3 HPF (0-3); Squamous Epithelial 0-3 HPF (0-3); WBC/HPF 0-3 HPF (0-3)
[2022-10-01 22:38] LABS: Troponin I 4.208 ng/mL (< 0.028)
[2022-10-01 23:06] VITALS: BMI 24.7
[2022-10-01] MEDS: Sodium Chloride 0.9% 1,000 ML IV SCH (23:44)
[2022-10-01] MEDS: Nicotine 21 MG PATCH TD SCH (23:44)
[2022-10-01] MEDS: traZODone HCl 150 MG TAB PO SCH (23:44)
[2022-10-01] MEDS: QUEtiapine 200 MG TAB PO SCH (23:44)
[2022-10-02] MEDS: Ipratropium Bromide 2.5 ml Neb NEB SCH ×4 (00:03→18:35)
[2022-10-02] MEDS: Acetaminophen 325 MG TAB PO PRN ×3 (00:03→21:08)
[2022-10-02] MEDS: Nitroglycerin 0.4 MG TAB (25 Tab Bottle) SL PRN ×2 (00:04→06:13)
[2022-10-02 01:34] LABS: Troponin I 4.455 ng/mL (< 0.028)
[2022-10-02] MEDS ORDERED: FLU VACC QS2022-23(6MOS UP)/PF 60 MCG/0.5 ML SYRINGE IM ONE (09:00)
[2022-10-02 09:14] LABS: Cardiac Risk 2.2 (Less than 4.5)
[2022-10-02] MEDS: Senokot S 8.6-50 MG TAB PO PRN (09:20)
[2022-10-02] MEDS: busPIRone HCl 5 MG TAB PO SCH ×2 (09:20→21:06)
[2022-10-02] MEDS: DULoxetine 60 MG CAP PO SCH (09:20)
[2022-10-02] MEDS: Aspirin Chewable 81 MG TAB PO SCH (09:20)
[2022-10-02 09:23] LABS: Critical Call Chem Troponin I RESULT DECREASING; Troponin I 1.838 ng/mL (< 0.028)
[2022-10-02] MEDS: Sodium Chloride 0.9% 1,000 ML IV SCH ×2 (09:23→21:06)
[2022-10-02] MEDS ORDERED: Iopamidol 370 76% 100 ML VIAL ONE (09:28)
[2022-10-02] MEDS ORDERED: Communication Order-Pharmacy FS PRN (11:00)
[2022-10-02] MEDS ORDERED: Nitroglycerin 100MG/250ML BOT 250 ML ONE (11:18)
[2022-10-02] MEDS ORDERED: Lidocaine 1% (PF) 30 ML VIAL ONE (11:18)
[2022-10-02] MEDS ORDERED: Heparin 10,000 UNITS/ 10 ML VIAL ONE (11:18)
[2022-10-02] MEDS ORDERED: Adenosine 6 MG/2 ML VIAL ONE (11:52)
[2022-10-02] MEDS ORDERED: Verapamil 5 MG/2 ML VIAL ONE (11:52)
[2022-10-02] MEDS ORDERED: FENTANYL 50 MCG/ML 1 ML VIAL ONE (12:27)
[2022-10-02] MEDS ORDERED: Midazolam HCl 2 mg/2 ml Vial ONE (12:28)
[2022-10-02] MEDS ORDERED: Morphine 4 MG/ML VIAL ONE (12:39)
[2022-10-02] MEDS ORDERED: Sodium Chloride 0.9% 200 ML IV PRN (13:26)
[2022-10-02] MEDS ORDERED: Nitroglycerin 0.4 MG TAB (25 Tab Bottle) SL PRN (13:26)
[2022-10-02] MEDS ORDERED: Acetaminophen/Codeine 30-300mg Tablet PO PRN ×2 (13:26)
[2022-10-02] MEDS: QUEtiapine 200 MG TAB PO SCH (21:06)
[2022-10-02] MEDS: traZODone HCl 150 MG TAB PO SCH (21:06)
[2022-10-03] MEDS: Ipratropium Bromide 2.5 ml Neb NEB SCH ×3 (00:28→12:55)
[2022-10-03] MEDS: Nicotine 21 MG PATCH TD SCH (00:58)
[2022-10-03] MEDS: Aspirin Chewable 81 MG TAB PO SCH (09:47)
[2022-10-03] MEDS: busPIRone HCl 5 MG TAB PO SCH ×2 (09:48→21:24)
[2022-10-03] MEDS: Sodium Chloride 0.9% 1,000 ML IV SCH (09:50)
[2022-10-03] MEDS: DULoxetine 60 MG CAP PO SCH (09:50)
[2022-10-03] MEDS ORDERED: Ipratropium Bromide 2.5 ml Neb NEB PRN (12:58)
[2022-10-03] MEDS ORDERED: predniSONE 20 MG TAB PO SCH (13:15)
[2022-10-03] MEDS: Senokot S 8.6-50 MG TAB PO PRN (14:02)
[2022-10-03] MEDS: QUEtiapine 200 MG TAB PO SCH (21:23)
[2022-10-03] MEDS: Doxycycline 100 MG CAP PO SCH (21:23)
[2022-10-03] MEDS: Acetaminophen 325 MG TAB PO PRN (21:23)
[2022-10-03] MEDS: traZODone HCl 150 MG TAB PO SCH (21:24)
[2022-10-03] MEDS: Famotidine 20 MG TAB PO SCH (21:24)
[2022-10-04] MEDS: Nicotine 21 MG PATCH TD SCH (00:05)
[2022-10-04 06:02] LABS: #Eosinphils 0.1 thou/uL (0.0-0.7); #Lymphocytes 1.8 thou/uL (1.20-3.40); #Monocytes 0.8 thou/uL (0.11-0.59); #Neutrophils 6.2 thou/uL (1.40-6.50); %Basophils 0.1 % (0.0-1.0); %Eosinophils 1.1 % (0.0-10.0); %Lymphocytes 20.1 % (21.0-51.0); %Monocytes 8.8 % (0.0-10.0); %Neutrophils 69.9 % (42.0-75.0); Hemoglobin 13.4 g/dL (12.0-16.0); Mean Corpuscular HGB CONC 33.9 g/dL (32.0-36.0); Mean Corpuscular Hemoglobin 33.8 pg (27.0-31.0); Mean Corpuscular Volume 99.9 fl (78.0-98.0); Mean Platelet Volume 7.5 fL (7.4-10.4); Platelet Count 280 10x3/uL (130-400); RBC Distribution Width 12.3 % (11.5-14.5); Red Blood Cell (RBC) Count 3.96 mill/uL (4.20-5.40); White Blood Cell (WBC) Count 8.8 10x3/uL (4.8-10.8)
[2022-10-04 06:16] LABS: Anion Gap 11 mmol/L (10-20); BUN (Urea Nitrogen) 15 mg/dL (9.8-20.1); Calc. Creatinine Clearance 116 mL/min (70-130); Calcium 8.7 mg/dL (7.8-10.44); Carbon Dioxide 22 mmol/L (23-31); Chloride 106 mmol/L (98-107); Estimated GFR 104; Glucose 97 mg/dL (80-115); Potassium 4.1 mmol/L (3.5-5.1); Sodium 135 mmol/L (136-145)
[2022-10-04] MEDS ORDERED: predniSONE 20 MG TAB PO SCH (08:00)
[2022-10-04] MEDS: busPIRone HCl 5 MG TAB PO SCH (09:49)
[2022-10-04] MEDS: DULoxetine 60 MG CAP PO SCH (09:49)
[2022-10-04] MEDS: Doxycycline 100 MG CAP PO SCH (09:49)
[2022-10-04] MEDS: Aspirin Chewable 81 MG TAB PO SCH (09:49)
[2022-10-04] MEDS: Famotidine 20 MG TAB PO SCH (09:50)
[2022-10-04 11:46] VITALS: TEMP 97.5
[2022-10-04 12:49] VITALS: BP 142/75
== END 2022-10-04 15:30 | disposition home or self-care (01) | DRG 281 ==
LOC: ERS 19:33 → NEURO 21:46
PROVIDERS: ADMIT Family Medicine; ATTEND Family Medicine
PROC: 4A023N7 Measurement of Cardiac Sampling and Pressure, Left Heart, Percutaneous Approach (ICD-10-PCS; principal; 2022-10-02)
PROC: B2111ZZ Fluoroscopy of Multiple Coronary Arteries using Low Osmolar Contrast (ICD-10-PCS; 2022-10-02)
PROC: B2151ZZ Fluoroscopy of Left Heart using Low Osmolar Contrast (ICD-10-PCS; 2022-10-02)
DX: I51.81 Takotsubo syndrome (principal); I21.A1 Myocardial infarction type 2; I47.20 Ventricular tachycardia, unspecified; J44.1 Chronic obstructive pulmonary disease with (acute) exacerbation; M19.90 Unspecified osteoarthritis, unspecified site; F17.210 Nicotine dependence, cigarettes, uncomplicated; Z20.822 Contact with and (suspected) exposure to COVID-19; I73.9 Peripheral vascular disease, unspecified; I80.9 Phlebitis and thrombophlebitis of unspecified site; Z79.82 Long term (current) use of aspirin; Z79.51 Long term (current) use of inhaled steroids; Z79.899 Other long term (current) drug therapy; Z86.73 Personal history of transient ischemic attack (TIA), and cerebral infarction without residual deficits; Z90.49 Acquired absence of other specified parts of digestive tract; Z98.890 Other specified postprocedural states; Z98.51 Tubal ligation status
CPT/HCPCS: 36415; 71045; 71275; 80048; 80053; 80061; 81003; 81015; 82553; 83690; 83735; 84484; 85025; 85379; 90471; 90686; 93005; 93010; 93306; 93458; 93970; 94640; 94760; 96372; 96374; 96375; 97139; 99152; C1769; C1887; C1894; G0008; J0153; J1644; J1650; J1885; J2001; J2250; J2270; J2405; J3010; J7050; J7512; Q9967; U0002

== ENCOUNTER 2023-02-19 10:32 | Observation (INO) | payer OTHER, MEDICAID ==
[2023-02-19] MEDS ORDERED: Nitroglycerin 0.4 MG TAB 1 EACH ONE (11:10)
[2023-02-19 11:41] LABS: #Basophils 0.1 thou/uL (0.0-0.2); #Eosinphils 0.3 thou/uL (0.0-0.7); #Monocytes 0.5 thou/uL (0.11-0.59); #Neutrophils 6.7 thou/uL (1.40-6.50); %Basophils 0.6 % (0.0-1.0); %Lymphocytes 13.5 % (21.0-51.0); %Monocytes 5.9 % (0.0-10.0); %Neutrophils 76.7 % (42.0-75.0); Hemoglobin 14.4 g/dL (12.0-16.0); Mean Corpuscular HGB CONC 34.8 g/dL (32.0-36.0); Mean Platelet Volume 9.5 fL (7.4-10.4); Platelet Count 426 10x3/uL (130-400); RBC Distribution Width 12.6 % (11.5-14.5); White Blood Cell (WBC) Count 8.8 10x3/uL (4.8-10.8)
[2023-02-19 12:01] LABS: ALT (SGPT) 9 U/L (8-55); AST (SGOT) 15 U/L (5-34); Albumin 3.6 g/dL (3.4-4.8); Alkaline Phosphatase 82 U/L (40-110); Anion Gap 13 mmol/L (10-20); BUN (Urea Nitrogen) 7 mg/dL (9.8-20.1); Bilirubin, Total 0.6 mg/dL (0.2-1.2); CK (CPK) 20 U/L (29-168); Calc. Creatinine Clearance 0 mL/min (70-130); Carbon Dioxide 24 mmol/L (23-31); Chloride 99 mmol/L (98-107); Estimated GFR 98; Globulin 3.4 g/dL (2.4-3.5); Glucose 111 mg/dL (80-115); Lipase 20 U/L (8-78); Magnesium 1.8 mg/dL (1.6-2.6); Potassium 4.4 mmol/L (3.5-5.1); Sodium 132 mmol/L (136-145)
[2023-02-19] MEDS ORDERED: Ondansetron ODT 4 MG TAB PO PRN (16:08)
[2023-02-19] MEDS ORDERED: Acetaminophen 325 MG TAB PO PRN (16:08)
[2023-02-19] MEDS ORDERED: Nicotine 14 MG PATCH TD SCH (16:15)
[2023-02-19 16:36] VITALS: BMI 25.4
[2023-02-19] MEDS ORDERED: predniSONE 20 MG TAB PO SCH (17:15)
[2023-02-19] MEDS: Ipratropium/Albuterol 3 ML NEB NEB SCH ×2 (19:10→22:45)
[2023-02-19] MEDS: Mometasone 100 MCG HFA INHALER (RT USE) INH SCH (19:14)
[2023-02-19] MEDS: busPIRone HCl 5 MG TAB PO SCH (20:38)
[2023-02-19] MEDS ORDERED: traZODone HCl 150 MG TAB PO SCH (21:00)
[2023-02-19] MEDS ORDERED: QUEtiapine 200 MG TAB PO SCH (21:00)
[2023-02-20] MEDS: Ipratropium/Albuterol 3 ML NEB NEB SCH ×4 (02:55→14:41)
[2023-02-20 05:00] LABS: #Monocytes 0.2 thou/uL (0.11-0.59); #Neutrophils 4.5 thou/uL (1.40-6.50); %Basophils 0.4 % (0.0-1.0); %Lymphocytes 15.6 % (21.0-51.0); %Monocytes 4.1 % (0.0-10.0); %Neutrophils 79.7 % (42.0-75.0); Mean Corpuscular HGB CONC 34.4 g/dL (32.0-36.0); Mean Corpuscular Hemoglobin 31.9 pg (27.0-31.0); Mean Corpuscular Volume 92.7 fl (78.0-98.0); Mean Platelet Volume 9.7 fL (7.4-10.4); Platelet Count 374 10x3/uL (130-400); RBC Distribution Width 12.4 % (11.5-14.5); Red Blood Cell (RBC) Count 4.39 mill/uL (4.20-5.40); White Blood Cell (WBC) Count 5.6 10x3/uL (4.8-10.8)
[2023-02-20 05:26] LABS: Anion Gap 11 mmol/L (10-20); BUN (Urea Nitrogen) 13 mg/dL (9.8-20.1); Calc. Creatinine Clearance 90 mL/min (70-130); Calcium 8.9 mg/dL (7.8-10.44); Carbon Dioxide 24 mmol/L (23-31); Chloride 104 mmol/L (98-107); Estimated GFR 97; Glucose 153 mg/dL (80-115); Sodium 135 mmol/L (136-145)
[2023-02-20] MEDS: Mometasone 100 MCG HFA INHALER (RT USE) INH SCH (07:28)
[2023-02-20] MEDS ORDERED: DULoxetine 60 MG CAP PO SCH (09:00)
[2023-02-20] MEDS ORDERED: Aspirin Chewable 81 MG TAB PO SCH (09:00)
[2023-02-20 09:43] VITALS: TEMP 97.7
[2023-02-20] MEDS: busPIRone HCl 5 MG TAB PO SCH (09:50)
[2023-02-20 12:13] VITALS: BP 133/68
== END 2023-02-20 14:40 | disposition home or self-care (01) ==
LOC: ERS 10:32 → 2SW 16:19
PROVIDERS: ADMIT Family Medicine; ATTEND Family Medicine
DX: J44.1 Chronic obstructive pulmonary disease with (acute) exacerbation (principal); R07.89 Other chest pain; J90 Pleural effusion, not elsewhere classified; K21.9 Gastro-esophageal reflux disease without esophagitis; F41.8 Other specified anxiety disorders; F31.9 Bipolar disorder, unspecified; I25.2 Old myocardial infarction; F17.210 Nicotine dependence, cigarettes, uncomplicated; Z79.82 Long term (current) use of aspirin; Z79.899 Other long term (current) drug therapy; Z90.49 Acquired absence of other specified parts of digestive tract
CPT/HCPCS: 71045; 71046; 80048; 80053; 82550; 83690; 83735; 83880; 84145; 84484 ×2; 85025 ×2; 93005; 94640 ×4; 96372 ×2; 97116; 99285; G0378 ×3; 36415; J1650; J7512; J7620

== ENCOUNTER 2023-04-07 00:25 | Emergency (ER) | payer OTHER ==
[2023-04-07] MEDS ORDERED: LORazepam 2 MG/ML SYR.(CARPUJECT) ONE (00:38)
[2023-04-07] MEDS ORDERED: Haloperidol Lactate 5 MG/ML VIAL ONE (00:44)
[2023-04-07 02:17] LABS: Bacteria/HPF None Seen HPF (None Seen); Bilirubin Negative (Negative); Blood, Urine Negative (Negative); CAUTI Indications for Culture Alt mental st,lethar; Clarity Clear (Clear); Glucose, Urine (Dipstick) Normal (Negative); Ketone, Urine Negative (Negative); Leukocyte Negative Leu/uL (Negative); Nitrite Negative (Negative); Protein, Urine (Dipstick) Negative (Neg-Trace); RBC/HPF 0-3 HPF (0-3); Specific Gravity, Urine 1.007 (1.002-1.036); Squamous Epithelial 0-3 HPF (0-3); Urobilinogen Normal mg/dL (Less than 2); WBC/HPF 0-3 HPF (0-3); pH, Urine 5.5 (5.0-9.0)
[2023-04-07 02:18] LABS: Amphetamine Not Detected (NotDetected); Barbiturates Screen Not Detected (NotDetected); Benzodiazepine Screen Not Detected (NotDetected); Cocaine Metabolite Screen Not Detected (NotDetected); Methadone Not Detected (NotDetected); Methamphetamine Not Detected (NotDetected); Opiate Screen Not Detected (NotDetected); Oxycodone Screen Not Detected (NotDetected); Phencyclidine (PCP) Not Detected (NotDetected); THC/Cannabinoid Screen Not Detected (NotDetected); Tricyclic Screen Not Detected (NotDetected); Urine Culture Reflex No No
[2023-04-07 02:33] LABS: #Basophils 0.1 thou/uL (0.0-0.2); #Eosinphils 0.3 thou/uL (0.0-0.7); #Monocytes 0.5 thou/uL (0.11-0.59); #Neutrophils 4.4 thou/uL (1.40-6.50); %Basophils 0.6 % (0.0-1.0); %Eosinophils 4.1 % (0.0-10.0); %Lymphocytes 35.5 % (21.0-51.0); %Monocytes 6.2 % (0.0-10.0); %Neutrophils 53.4 % (42.0-75.0); Hematocrit 40.9 % (36.0-47.0); Hemoglobin 13.9 g/dL (12.0-16.0); Mean Corpuscular Hemoglobin 31.8 pg (27.0-31.0); Mean Corpuscular Volume 93.6 fl (78.0-98.0); Mean Platelet Volume 9.5 fL (7.4-10.4); Platelet Count 323 10x3/uL (130-400); Red Blood Cell (RBC) Count 4.37 mill/uL (4.20-5.40); White Blood Cell (WBC) Count 8.2 10x3/uL (4.8-10.8)
[2023-04-07 02:56] LABS: ALT (SGPT) Less than 7 U/L (8-55); AST (SGOT) 16 U/L (5-34); Albumin 3.4 g/dL (3.4-4.8); Alkaline Phosphatase 60 U/L (40-110); Anion Gap 15 mmol/L (10-20); BUN (Urea Nitrogen) 6 mg/dL (9.8-20.1); Bilirubin, Total 0.3 mg/dL (0.2-1.2); CK (CPK) 118 U/L (29-168); Calc. Creatinine Clearance 0 mL/min (70-130); Calcium 8.4 mg/dL (7.8-10.44); Carbon Dioxide 20 mmol/L (23-31); Chloride 105 mmol/L (98-107); Estimated GFR 102; Glucose 83 mg/dL (80-115); Potassium 3.2 mmol/L (3.5-5.1); Protein, Total 6.4 g/dL (5.8-8.1); Sodium 137 mmol/L (136-145)
[2023-04-07 03:00] LABS: Troponin I 0.013 ng/mL (< 0.028)
[2023-04-07 03:02] LABS: Acetaminophen Less than 10 mcg/mL (10.0-30.0); Alcohol 166.2 mg/dL (Less than 10); Lipase 43 U/L (8-78); Salicylate Less than 8.0 mg/dL (15.0-30.0)
== END 2023-04-08 07:50 | disposition home or self-care (01) ==
LOC: ERS 00:25
DX: R41.82 Altered mental status, unspecified (principal); F10.129 Alcohol abuse with intoxication, unspecified; J44.9 Chronic obstructive pulmonary disease, unspecified; F17.210 Nicotine dependence, cigarettes, uncomplicated; Y90.6 Blood alcohol level of 120-199 mg/100 ml; Z79.82 Long term (current) use of aspirin
CPT/HCPCS: 70450; 80306; 80307 ×2; 81001; 82140; 82550; 83690; 84484; 93005; J2060; 36415; 51701; 80053; 84443; 85025; 96360; 96372; J1630

== ENCOUNTER 2023-10-01 16:02 | Emergency (ER) | payer OTHER ==
[2023-10-01] MEDS ORDERED: methylPREDNISolone Sod Succ/PF 125 MG/2 ML VIAL ONE (16:37)
[2023-10-01 16:49] LABS: #Eosinphils 0.1 thou/uL (0.0-0.7); #Monocytes 0.7 thou/uL (0.11-0.59); #Neutrophils 6.1 thou/uL (1.40-6.50); %Basophils 0.5 % (0.0-1.0); %Eosinophils 1.6 % (0.0-10.0); %Lymphocytes 20.4 % (21.0-51.0); %Monocytes 7.9 % (0.0-10.0); %Neutrophils 69.3 % (42.0-75.0); Hematocrit 42.9 % (36.0-47.0); Hemoglobin 14.7 g/dL (12.0-16.0); Mean Corpuscular HGB CONC 34.3 g/dL (32.0-36.0); Mean Corpuscular Hemoglobin 32.1 pg (27.0-31.0); Mean Corpuscular Volume 93.7 fl (78.0-98.0); Mean Platelet Volume 9.8 fL (7.4-10.4); Platelet Count 339 10x3/uL (130-400); RBC Distribution Width 13.2 % (11.5-14.5); Red Blood Cell (RBC) Count 4.58 mill/uL (4.20-5.40); White Blood Cell (WBC) Count 8.8 10x3/uL (4.8-10.8)
[2023-10-01 17:18] LABS: Troponin I 0.014 ng/mL (< 0.028)
[2023-10-01 17:21] LABS: ALT (SGPT) 8 U/L (8-55); AST (SGOT) 22 U/L (5-34); Albumin 3.5 g/dL (3.4-4.8); Alkaline Phosphatase 65 U/L (40-110); Anion Gap 14 mmol/L (10-20); BUN (Urea Nitrogen) 8 mg/dL (9.8-20.1); Bilirubin, Total 0.4 mg/dL (0.2-1.2); Calc. Creatinine Clearance 0 mL/min (70-130); Calcium 8.7 mg/dL (7.8-10.44); Carbon Dioxide 18 mmol/L (23-31); Chloride 108 mmol/L (98-107); Estimated GFR 97; Globulin 3.3 g/dL (2.4-3.5); Glucose 96 mg/dL (80-115); Lipase 31 U/L (8-78); Magnesium 1.9 mg/dL (1.6-2.6); Protein, Total 6.8 g/dL (5.8-8.1); Sodium 135 mmol/L (136-145)
[2023-10-01 17:37] LABS: SARS-CoV-2 NAA Rapid Test Not Detected (NotDetected)
[2023-10-01 19:53] LABS: Troponin I 0.016 ng/mL (< 0.028)
== END 2023-10-01 20:35 | disposition home or self-care (01) ==
LOC: ERS 16:02
DX: J44.1 Chronic obstructive pulmonary disease with (acute) exacerbation (principal); F17.210 Nicotine dependence, cigarettes, uncomplicated
CPT/HCPCS: 0240U; 71045; 80053; 83690; 83735; 83880; 84484 ×2; 85025; 93005; 94640; 36415; 96361; 96374; J2930

== ENCOUNTER 2024-01-09 12:20 | Emergency (ER) | payer OTHER ==
[2024-01-09] MEDS ORDERED: Cyclobenzaprine 10 MG TAB ONE (14:10)
[2024-01-09] MEDS ORDERED: Ketorolac Tromethamine 30 MG (1 mL) VIAL ONE (14:10)
[2024-01-09] MEDS ORDERED: predniSONE 20 MG TAB ONE (14:11)
[2024-01-09] MEDS ORDERED: HYDROcodone/Acetaminophen 10/325 mg Tablet ONE (14:46)
[2024-01-09 15:28] LABS: Bacteria/HPF None Seen HPF (None Seen); Bilirubin Negative (Negative); Blood, Urine Negative (Negative); CAUTI Indications for Culture Pelvic or flank pain; Clarity Clear (Clear); Glucose, Urine (Dipstick) Normal (Negative); Ketone, Urine 10 mg/dL (Negative); Leukocyte Negative Leu/uL (Negative); Nitrite Negative (Negative); Protein, Urine (Dipstick) Negative (Neg-Trace); RBC/HPF 0-3 HPF (0-3); Specific Gravity, Urine 1.018 (1.002-1.036); Squamous Epithelial None Seen HPF (0-3); WBC/HPF 0-3 HPF (0-3); pH, Urine 6.5 (5.0-9.0)
[2024-01-09 15:39] LABS: Urine Culture Reflex No No
== END 2024-01-09 20:25 | disposition home or self-care (01) ==
LOC: ERS 12:20
DX: M54.50 Low back pain, unspecified (principal); J45.909 Unspecified asthma, uncomplicated; F17.210 Nicotine dependence, cigarettes, uncomplicated; Z79.899 Other long term (current) drug therapy
CPT/HCPCS: 71046; 72131; 72148; 81001; 93005; J1885; J7512

== ENCOUNTER 2024-05-12 18:00 | Inpatient (IN) | payer OTHER ==
[~2024-05-12 18:00] MED LIST changes: -Iopamidol-370 76% 500 ML 1 ML ONE; +Iopamidol-370 76% 500 ML MDV (1 ML CHARGE) ONE
[2024-05-12 18:45] LABS: #Basophils 0.06 10x3/uL (0.0-0.2); %Basophils 0.8 % (0.0-1.0); %Eosinophils 1.7 % (0.0-10.0); %Lymphocytes 24.3 % (21.0-51.0); %Monocytes 7.2 % (0.0-10.0); %Neutrophils 65.6 % (42.0-75.0); Hematocrit 42.1 % (36.0-47.0); Hemoglobin 14.7 g/dL (12.0-16.0); Mean Corpuscular HGB CONC 34.9 g/dL (32.0-36.0); Mean Corpuscular Hemoglobin 31.9 pg (27.0-31.0); Mean Corpuscular Volume 91.3 fL (78.0-98.0); Mean Platelet Volume 9.6 fL (7.4-10.4); Platelet Count 338 10x3/uL (130-400); RBC Distribution Width 12.8 % (11.5-14.5); Red Blood Cell (RBC) Count 4.61 mill/uL (4.20-5.40)
[2024-05-12 18:58] LABS: Prothrombin Time 12.8 sec (12.0-14.7)
[2024-05-12 18:59] LABS: PTT 30.1 sec (22.9-36.1)
[2024-05-12 19:04] LABS: Troponin I 0.021 ng/mL (< 0.028)
[2024-05-12 19:09] LABS: ALT (SGPT) 8 U/L (8-55); AST (SGOT) 13 U/L (5-34); Acetaminophen Less than 10 mcg/mL (Less than 10); Albumin 3.2 g/dL (3.4-4.8); Alcohol Less than 10.0 mg/dL (Less than 10); Alkaline Phosphatase 68 U/L (40-110); Anion Gap 15 mmol/L (10-20); BUN (Urea Nitrogen) 8 mg/dL (9.8-20.1); Bilirubin, Total 0.4 mg/dL (0.2-1.2); Calc. Creatinine Clearance 0 mL/min (70-130); Calcium 8.7 mg/dL (7.8-10.44); Carbon Dioxide 19 mmol/L (23-31); Chloride 104 mmol/L (98-107); Estimated GFR 97; Globulin 3.2 g/dL (2.4-3.5); Glucose 108 mg/dL (80-115); Potassium 3.9 mmol/L (3.5-5.1); Protein, Total 6.4 g/dL (5.8-8.1); Salicylate Less than 8.0 mg/dL (Less than 8.0); Sodium 134 mmol/L (136-145)
[2024-05-12 19:55] LABS: Bacteria/HPF None Seen HPF (None Seen); Bilirubin Negative (Negative); Blood, Urine Negative (Negative); CAUTI Indications for Culture Alt mental st,lethar; Clarity Clear (Clear); Glucose, Urine (Dipstick) Normal (Negative); Ketone, Urine Negative (Negative); Leukocyte Negative Leu/uL (Negative); Nitrite Negative (Negative); Protein, Urine (Dipstick) Negative (Neg-Trace); Specific Gravity, Urine 1.044 (1.002-1.036); Squamous Epithelial 0-3 HPF (0-3); Urobilinogen Normal mg/dL (Less than 2); WBC/HPF 0-3 HPF (0-3); pH, Urine 6.5 (5.0-9.0)
[2024-05-12 19:57] LABS: Urine Culture Reflex No No
[2024-05-12 19:59] LABS: Amphetamine Not Detected (NotDetected); Barbiturates Screen Not Detected (NotDetected); Benzodiazepine Screen Not Detected (NotDetected); Cocaine Metabolite Screen Not Detected (NotDetected); Methadone Not Detected (NotDetected); Methamphetamine Not Detected (NotDetected); Opiate Screen Not Detected (NotDetected); Oxycodone Screen Not Detected (NotDetected); Phencyclidine (PCP) Not Detected (NotDetected); THC/Cannabinoid Screen Not Detected (NotDetected); Tricyclic Screen Not Detected (NotDetected)
[2024-05-12] MEDS ORDERED: Ketorolac Tromethamine 30 MG (1 mL) VIAL IVP PRN (21:56)
[2024-05-12] MEDS ORDERED: Nicotine 14 MG PATCH TD SCH (22:00)
[2024-05-12 22:42] LABS: Hemoglobin A1c 4.6 % (4.0-6.0)
[2024-05-13] MEDS: Nicotine 14 MG PATCH TD SCH (00:31)
[2024-05-13] MEDS: Lactated Ringer's 1,000 ML IV SCH (00:31)
[2024-05-13] MEDS: Metoclopramide HCl 10 MG (2 mL) VIAL IVP SCH (01:54)
[2024-05-13] MEDS: diphenhydrAMINE 50 MG/ML VIAL IVP SCH (01:54)
[2024-05-13 06:17] LABS: #Basophils 0.06 10x3/uL (0.0-0.2); %Basophils 1.1 % (0.0-1.0); %Eosinophils 5.1 % (0.0-10.0); %Lymphocytes 41.3 % (21.0-51.0); %Monocytes 9.7 % (0.0-10.0); %Neutrophils 42.6 % (42.0-75.0); Hemoglobin 13.7 g/dL (12.0-16.0); Mean Corpuscular HGB CONC 34.3 g/dL (32.0-36.0); Mean Corpuscular Hemoglobin 31.4 pg (27.0-31.0); Mean Corpuscular Volume 91.7 fL (78.0-98.0); Mean Platelet Volume 9.9 fL (7.4-10.4); Platelet Count 309 10x3/uL (130-400); RBC Distribution Width 12.7 % (11.5-14.5); Red Blood Cell (RBC) Count 4.36 mill/uL (4.20-5.40)
[2024-05-13 06:44] LABS: ALT (SGPT) 8 U/L (8-55); AST (SGOT) 14 U/L (5-34); Alkaline Phosphatase 59 U/L (40-110); Anion Gap 13 mmol/L (10-20); BUN (Urea Nitrogen) 7 mg/dL (9.8-20.1); Bilirubin, Total 0.5 mg/dL (0.2-1.2); Calc. Creatinine Clearance 92 mL/min (70-130); Calcium 8.5 mg/dL (7.8-10.44); Carbon Dioxide 20 mmol/L (23-31); Chloride 108 mmol/L (98-107); Estimated GFR 100; Glucose 82 mg/dL (80-115); Potassium 3.8 mmol/L (3.5-5.1); Sodium 137 mmol/L (136-145)
[2024-05-13 10:03] VITALS: BMI 22.5
[2024-05-13] MEDS: Enoxaparin 40 MG (0.4 mL) SYRINGE SC SCH (10:38)
[2024-05-13] MEDS: Aspirin 81 mg Enteric Coated Tablet PO SCH (10:39)
[2024-05-13] MEDS: Clopidogrel Bisulfate 300 MG TAB PO SCH (10:39)
[2024-05-13] MEDS: Acetaminophen 325 MG TAB PO PRN (14:22)
[2024-05-13] MEDS: Ipratropium/Albuterol 3 ML NEB NEB SCH (18:50)
[2024-05-13] MEDS: Mometasone 100 MCG HFA INHALER (RT USE) INH SCH (18:50)
[2024-05-13] MEDS: Atorvastatin Calcium 40 MG TAB PO SCH (21:34)
[2024-05-13] MEDS: QUEtiapine 200 MG TAB PO SCH (22:36)
[2024-05-14 05:12] LABS: #Basophils 0.05 10x3/uL (0.0-0.2); %Basophils 0.8 % (0.0-1.0); %Eosinophils 4.4 % (0.0-10.0); %Lymphocytes 39.1 % (21.0-51.0); %Monocytes 7.7 % (0.0-10.0); %Neutrophils 47.7 % (42.0-75.0); Hematocrit 39.6 % (36.0-47.0); Hemoglobin 13.4 g/dL (12.0-16.0); Mean Corpuscular HGB CONC 33.8 g/dL (32.0-36.0); Mean Corpuscular Hemoglobin 32.4 pg (27.0-31.0); Mean Corpuscular Volume 95.7 fL (78.0-98.0); Platelet Count 289 10x3/uL (130-400); Red Blood Cell (RBC) Count 4.14 mill/uL (4.20-5.40)
[2024-05-14 05:52] LABS: ALT (SGPT) 8 U/L (8-55); AST (SGOT) 12 U/L (5-34); Albumin 2.9 g/dL (3.4-4.8); Alkaline Phosphatase 75 U/L (40-110); Anion Gap 11 mmol/L (10-20); BUN (Urea Nitrogen) 14 mg/dL (9.8-20.1); Bilirubin, Total 0.3 mg/dL (0.2-1.2); Calc. Creatinine Clearance 92 mL/min (70-130); Calcium 8.4 mg/dL (7.8-10.44); Carbon Dioxide 22 mmol/L (23-31); Chloride 107 mmol/L (98-107); Estimated GFR 100; Glucose 114 mg/dL (80-115); Potassium 3.8 mmol/L (3.5-5.1); Protein, Total 5.9 g/dL (5.8-8.1); Sodium 136 mmol/L (136-145)
[2024-05-14 06:22] VITALS: BMI 24.7
[2024-05-14] MEDS: Clopidogrel Bisulfate 75 MG TAB PO SCH (09:31)
[2024-05-14] MEDS: Benzonatate 100 MG CAP PO PRN (11:30)
[2024-05-14] MEDS: Furosemide 20 MG (2 mL) VIAL SLOW IVP SCH (11:30)
[2024-05-14] MEDS: hydrOXYzine 10 MG TAB PO SCH (15:27)
[2024-05-14] MEDS ORDERED: QUEtiapine 200 MG TAB PO SCH ×2 (21:00)
[2024-05-14] MEDS: traZODone HCl 150 MG TAB PO SCH (21:11)
[2024-05-14] MEDS: busPIRone HCl 5 MG TAB PO SCH (21:12)
[2024-05-14] MEDS: QUEtiapine 200 MG TAB PO SCH (21:13)
[2024-05-15 03:48] LABS: #Basophils 0.05 10x3/uL (0.0-0.2); %Basophils 0.8 % (0.0-1.0); %Eosinophils 4.4 % (0.0-10.0); %Monocytes 9.7 % (0.0-10.0); %Neutrophils 50.8 % (42.0-75.0); Hematocrit 38.2 % (36.0-47.0); Hemoglobin 12.8 g/dL (12.0-16.0); Mean Corpuscular HGB CONC 33.5 g/dL (32.0-36.0); Mean Corpuscular Volume 95.5 fL (78.0-98.0); Mean Platelet Volume 9.9 fL (7.4-10.4); Platelet Count 291 10x3/uL (130-400)
[2024-05-15 04:48] LABS: ALT (SGPT) 7 U/L (8-55); AST (SGOT) 10 U/L (5-34); Albumin 2.9 g/dL (3.4-4.8); Alkaline Phosphatase 71 U/L (40-110); Anion Gap 10 mmol/L (10-20); BUN (Urea Nitrogen) 16 mg/dL (9.8-20.1); Bilirubin, Total 0.2 mg/dL (0.2-1.2); Calc. Creatinine Clearance 92 mL/min (70-130); Calcium 8.5 mg/dL (7.8-10.44); Carbon Dioxide 25 mmol/L (23-31); Chloride 105 mmol/L (98-107); Estimated GFR 98; Globulin 2.9 g/dL (2.4-3.5); Glucose 110 mg/dL (80-115); Potassium 3.8 mmol/L (3.5-5.1); Protein, Total 5.8 g/dL (5.8-8.1); Sodium 136 mmol/L (136-145)
[2024-05-15] MEDS: DULoxetine 20 MG CAP PO SCH (10:12)
[2024-05-15] MEDS: DULoxetine 60 MG CAP PO SCH (10:12)
[2024-05-16 04:25] LABS: #Basophils 0.05 10x3/uL (0.0-0.2); %Basophils 0.8 % (0.0-1.0); %Lymphocytes 32.4 % (21.0-51.0); %Monocytes 10.7 % (0.0-10.0); %Neutrophils 50.9 % (42.0-75.0); Hematocrit 38.9 % (36.0-47.0); Hemoglobin 13.2 g/dL (12.0-16.0); Mean Corpuscular HGB CONC 33.9 g/dL (32.0-36.0); Mean Corpuscular Hemoglobin 31.7 pg (27.0-31.0); Mean Corpuscular Volume 93.5 fL (78.0-98.0); Mean Platelet Volume 10.3 fL (7.4-10.4); Platelet Count 302 10x3/uL (130-400); RBC Distribution Width 13.1 % (11.5-14.5); Red Blood Cell (RBC) Count 4.16 mill/uL (4.20-5.40)
[2024-05-16 04:41] LABS: ALT (SGPT) 7 U/L (8-55); AST (SGOT) 11 U/L (5-34); Albumin 2.9 g/dL (3.4-4.8); Alkaline Phosphatase 68 U/L (40-110); Anion Gap 12 mmol/L (10-20); BUN (Urea Nitrogen) 18 mg/dL (9.8-20.1); Bilirubin, Total 0.2 mg/dL (0.2-1.2); Calc. Creatinine Clearance 100 mL/min (70-130); Calcium 8.6 mg/dL (7.8-10.44); Carbon Dioxide 24 mmol/L (23-31); Chloride 104 mmol/L (98-107); Estimated GFR 100; Glucose 88 mg/dL (80-115); Potassium 4.2 mmol/L (3.5-5.1); Protein, Total 5.9 g/dL (5.8-8.1); Sodium 136 mmol/L (136-145)
[2024-05-16 08:29] VITALS: TEMP 97.5
[2024-05-16] MEDS: Guaifenesin DM 100-10/5 ML UDCUP PO PRN (08:49)
[2024-05-16] MEDS ORDERED: Albuterol 2.5 MG (3 mL) NEB NEB PRN (09:04)
[2024-05-16 12:31] VITALS: BP 128/74
== END 2024-05-16 16:32 | DRG 57 ==
LOC: ERS 18:00 → ERHOLD 20:45 → 2SE 23:29 → OBSVTOIN 05-13 09:55
PROVIDERS: ADMIT Family Medicine; ATTEND Family Medicine
DX: I69.354 Hemiplegia and hemiparesis following cerebral infarction affecting left non-dominant side (principal); I50.32 Chronic diastolic (congestive) heart failure; J44.9 Chronic obstructive pulmonary disease, unspecified; R29.898 Other symptoms and signs involving the musculoskeletal system; F17.210 Nicotine dependence, cigarettes, uncomplicated; Z79.899 Other long term (current) drug therapy; Z79.82 Long term (current) use of aspirin; Z79.2 Long term (current) use of antibiotics
CPT/HCPCS: 36415; 36416; 70450; 70496; 70498; 70551; 71045; 80053; 80061; 80306; 80307; 81001; 83036; 83880; 84145; 84443; 84484; 85025; 85610; 85730; 93005; 93306; 94640; 94760; J1200; J1650; J1940; J2765; J7120; J7620; Q9967

== ENCOUNTER 2024-05-27 15:24 | Emergency (ER) | payer OTHER ==
[2024-05-27 16:50] LABS: #Basophils 0.09 10x3/uL (0.0-0.2); %Eosinophils 1.8 % (0.0-10.0); %Lymphocytes 25.9 % (21.0-51.0); %Monocytes 6.1 % (0.0-10.0); %Neutrophils 64.9 % (42.0-75.0); Hematocrit 41.2 % (36.0-47.0); Hemoglobin 14.2 g/dL (12.0-16.0); Mean Corpuscular HGB CONC 34.5 g/dL (32.0-36.0); Mean Corpuscular Hemoglobin 31.8 pg (27.0-31.0); Mean Corpuscular Volume 92.4 fL (78.0-98.0); Mean Platelet Volume 9.4 fL (7.4-10.4); Platelet Count 391 10x3/uL (130-400); RBC Distribution Width 12.7 % (11.5-14.5); Red Blood Cell (RBC) Count 4.46 mill/uL (4.20-5.40)
[2024-05-27 17:06] LABS: ALT (SGPT) 15 U/L (8-55); AST (SGOT) 21 U/L (5-34); Albumin 3.5 g/dL (3.4-4.8); Alkaline Phosphatase 75 U/L (40-110); Anion Gap 15 mmol/L (10-20); BUN (Urea Nitrogen) 8 mg/dL (9.8-20.1); Bilirubin, Total 0.5 mg/dL (0.2-1.2); Calc. Creatinine Clearance 0 mL/min (70-130); Calcium 8.9 mg/dL (7.8-10.44); Carbon Dioxide 19 mmol/L (23-31); Chloride 108 mmol/L (98-107); Estimated GFR 99; Globulin 3.7 g/dL (2.4-3.5); Glucose 81 mg/dL (80-115); Protein, Total 7.2 g/dL (5.8-8.1); Sodium 138 mmol/L (136-145)
== END 2024-05-27 17:32 | disposition home or self-care (01) ==
LOC: ERS 15:24
DX: I49.3 Ventricular premature depolarization (principal); Z71.1 Person with feared health complaint in whom no diagnosis is made; F17.210 Nicotine dependence, cigarettes, uncomplicated; J44.9 Chronic obstructive pulmonary disease, unspecified
CPT/HCPCS: 36415; 71045; 80053; 84484; 85025; 93005